=== PATIENT | female | born 1985 | race Caucasian/White ===

== ENCOUNTER → 2017-12-08 15:47 | Outpatient (CLI) | payer MEDICAID, SELFPAY ==
[2017-12-10 11:33] LABS: Hepatitis B Surface Ag Negative (NEGAT); Hepatitis C Ab w Rflx HCV PCR Negative (NEGAT)
[2017-12-10 11:34] LABS: HIV-1/2 Ag & Ab Screen Negative (NEGAT)
[2017-12-10 12:46] LABS: Syphilis Serology (RPR) Negative (Negative)
== END ==
PROVIDERS: PCP Nurse Practitioner Family; Visit Provider Nurse Practitioner Family
DX: Z11.3 Encounter for screening for infections with a predominantly sexual mode of transmission (principal); Z11.59 Encounter for screening for other viral diseases; Z11.4 Encounter for screening for human immunodeficiency virus [HIV]; Z12.4 Encounter for screening for malignant neoplasm of cervix; Z11.51 Encounter for screening for human papillomavirus (HPV)
CPT/HCPCS: 36415; 86803; 87340; 87389; 88142; 86592; 87624

== ENCOUNTER → 2017-12-08 16:12 | Outpatient (REF) | payer MEDICAID, SELFPAY ==
--- NOTE | 2017-12-08 15:30 | PAPFT_PTH ---
PATIENT: Audra Steward LOC: [facility] U#:[id number] AGE/SX: 40/F ROOM: RE12/08/[address]: EVE Jean-Baptiste : 1985 BED: DIS: SPEC #: [id number] RECD: 12/08/17 17:57 STATUS: MARIE GIMENEZ #: [id number] GEORGE: 12/08/17 15:[address]: Marce Victoria DEPT: [facility] Cytology RECD BY: Giovana Richardson ENTERED: 12/08/17 17:57 SP TYPE: PAPFT OTHR DR: EVE Chung Tissues: 1 - CX/ENDOCX FOR PAP SMEARS Procedures: PAP THIN PREP/UVM Screening HPV DNA PROBE Comments: [id number]
== END ==
LOC: LBN 16:12
PROVIDERS: PCP Nurse Practitioner Family; Visit Provider Nurse Practitioner Family
DX: Z12.4 Encounter for screening for malignant neoplasm of cervix (principal); Z11.51 Encounter for screening for human papillomavirus (HPV)
CPT/HCPCS: 88142; 87624

== ENCOUNTER 2018-01-26 14:55 | Outpatient (REF) | payer MEDICAID, SELFPAY ==
--- NOTE | 2018-01-26 13:20 | ENDO_PTH ---
PATIENT: Audra Steward LOC: [facility] U#:[id number] AGE/SX: 32/F ROOM: RE01/26/[address]: Deedee Metz : 1985 BED: DIS: 01/26/2018 SPEC #: [id number] RECD: 01/26/18 18:04 STATUS: MARIE REVikram #: [id number] GEORGE: 01/26/18 13:[address]: Deedee Metz DEPT: Surgical Specimen RECD BY: Giovana Richardson ENTERED: 01/26/18 18:05 SP TYPE: Endo OTHR DR: EVE Chung Tissues: 1 - ENDOCERVICAL BX/CURRETTE 2 - CERVICAL BIOPSY Procedures: GROSS AND MICRO LEVEL 4 Comments: [id number]
== END 2018-01-26 15:15 ==
LOC: LBN 14:55
PROVIDERS: PCP Nurse Practitioner Family; Visit Provider Obstetrics & Gynecology Gynecology
DX: N87.0 Mild cervical dysplasia (principal); R87.610 Atypical squamous cells of undetermined significance on cytologic smear of cervix (ASC-US)
CPT/HCPCS: 88305

== ENCOUNTER 2018-12-30 10:17 | Emergency (ER) | payer MEDICAID, SELFPAY ==
[2018-12-30 10:18] VITALS: BP 122/89; PULSE 60; RESP 16; TEMP 36.8; O2SAT 100
--- NOTE | 2018-12-30 10:27 | ED.GENADUL_ITS ---
Discharge Plan Disposition Patient Disposition: HOME Condition: Stable Discharge Details Chief Complaint: Nk/Back Pain Clinical Impression: Lumbar back pain Primary Care Provider: Kayley Waters ED Provider: Wilder Ramirez Home Meds and New Rx's Prescriptions: New cyclobenzaprine 10 mg tablet 10 mg PO TID PRN (Reason: muscle spasm) Qty: 30 RF: 0 Continued fluocinonide-emollient [Fluocinonide-E] 0.05 % cream 1 applic Topical BID Qty: 1 RF: 5 Nexplanon 68 MG implant 68 mg SQ ONCE Qty: 1 RF: 0 Discharge Instructions Instructions: Back Pain (ED) Additional Instructions: take 1000mg tylenol and 600mg ibuprofen every 6 hours for pain as needed if pain is still present in a week see your primary care provider do not drink alcohol or drive if you take the cyclobenzaprine if you develop severe worsening pain, inability to urinate, fevers return to the emergency department Discharge Data Discharge Date/Time-TO BE ENTERED AT DEPARTURE: 12/30/18 10:36 Medical Decision Making 33 yo female who has a hx of prior low back muscle spasms per pt, comesin with low back pain. She states it started this morning after sneezing. Denies trauma, falls, weakness, fevers, and denies alcohol or drug use .She has 5/5 strength with intact distal senation in the legs and no saddle anesthesia. Pain is paraspinous on both sides of lumbar spine, no midline pain. I suspect muscle spasm vs strain. no findings on exam or hx to suggest sea or cauda equina. Will tx with muscle relaxers and advised f/u with pcp and return precautions given. Given lack of trauma do not feel xray or ct indicated and no infectious symptoms to suggest discitis or osteo. Differential Diagnosis strain, spasm HPI General Mode of arrival: ambulatory . Date/Time Provider Initiated Documentation: 12/30/18 10:17 . Limitations to Documentation: no limitations . Information obtained by: patient . History of Present Illness 33 year old F presents to the emergency department with the chief complaint of low back pain, described as moderate, Quality is described as stabbing and aching, Patient reports radiation to back. No relieving factors improve symptom(s), No exacerbating factors reported . Patient notes no other symptoms.. Patient did receive the following treatments prior to arrival, none Related Data Home Medications Medication Instructions Recorded Confirmed Nexplanon 68 mg SQ ONCE #1 implant 06/15/14 12/30/18 Fluocinonide-E 0.05 % topical cream 1 applic TOPICAL BID #1 tube NS 01/26/18 12/30/18 cyclobenzaprine 10 mg PO TID PRN #30 tab 12/30/18 Previous Rx's Medication Instructions Recorded Fluocinonide-E 0.05 % topical cream 1 applic TOPICAL BID #1 tube NS 01/26/18 cyclobenzaprine 10 mg PO TID PRN #30 tab 12/30/18 Allergies Allergy/AdvReac Type Severity Reaction Status Date / Time Penicillins AdvReac Unknown Nausea Unverified 12/30/18 10:22 General Stated Complaint: Nk/Back Pain CASSIDY: 4 Review of Systems Review of Systems All systems reviewed & are unremarkable except as noted in HPI and below Constitutional Denies chills, Denies fever(s) and Denies weakness Cardiovascular Denies chest pain and Denies dyspnea Respiratory Denies cough and Denies dyspnea Gastrointestinal Denies abdominal pain, Denies nausea and Denies vomiting Musculoskeletal Denies joint swelling Neurologic Denies weakness Endocrine Denies heat intolerance [facility] Medical History (Updated 02/28/18 @ 21:23 by Deedee Metz MD) ASCUS with positive high risk HPV cervical (Acute) 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 02/2017 LEEP: CIN2 clear margins. 11/2017 Pap ASCUS with positive HPV. 01/26/2018. No dysplasia. Repeat Pap in 11/2018. Contraception 2018 2nd Nexplanon inserted. Dermatofibroma of ankle And back Eczema Right lower extremity. 01/17/2017 Rx for topical steroid. LLQ pain (Resolved) Pt had ED visit on 11/04/15 with LLQ pain. Had non-obstructing L kidney stone and L ovarian cyst. Both managed expectantly. Surgical History (Updated 02/04/18 @ 14:34 by [employer] [place]) section x2 Family History Mother Personal history of malignant neoplasm lung CA Father Personal history of malignant neoplasm prostate CA Social History (Updated 02/28/18 @ 21:18 by Deedee Metz MD) Smoking/Tobacco Use Status: Never Alcohol Intake: current Alcohol Intake frequency: holidays/special occasions only Drug use: Never Substance use type: does not use Household members: children and other Details: daughters Eve and Yumiko Number of Children: 2 Seatbelt use: always Do you feel safe at home: Yes Do you feel safe in your relationship?: Yes Female Reproductive History Menstrual control method: implanted History History 2 Para Hx # Term Pregnancies 2 Multiple births Hx # Pregnancies Ectopic pregnancies AB induced Hx Number of Living Children AB spontaneous Exam Const General: no acute distress Orientation: alert HENMT Head: normal to inspection Ears: external ears normal General nose exam: external nose normal Mouth: moist mucous membranes Eyes General: appearance normal, both eyes and all related structures Neck Neck: normal visual inspection Resp Effort & Inspection: normal respiratory effort and able to speak in complete sentences Cardio Rate: regular rate Back/Spine/Pelvis Back: no CVA tenderness Skin General skin exam: no rashes or lesions noted Neuro General: alert and oriented x3 Extrem General: normal to inspection Psych Mental Status: mental status grossly normal Course Vital Signs Temperature 36.8 C 12/30/18 10:18 Pulse 60 12/30/18 10:18 Respiratory Rate 16 12/30/18 10:18 Blood Pressure 122/89 12/30/18 10:18 Pulse Oximetry 100 12/30/18 10:18 Temperature 36.8 C 12/30/18 10:18 Temperature Source Skin 12/30/18 10:18 Pulse 60 12/30/18 10:18 Respiratory Rate 16 12/30/18 10:18 Respiratory Effort Non-Labored 12/30/18 10:21 Blood Pressure 122/89 12/30/18 10:18 Blood Pressure Position Sitting 12/30/18 10:18 Pulse Oximetry 100 12/30/18 10:18 Oxygen Delivery Method Room Air 12/30/18 10:18 Oxygen Flow Rate 0 12/30/18 10:18 Pain Level 8 12/30/18 10:18
== END 2018-12-30 10:36 | disposition home or self-care (01) ==
LOC: ER 10:38
PROVIDERS: Emergency Provider Emergency Medicine; PCP Nurse Practitioner Family
DX: M54.5 Low back pain (principal)
CPT/HCPCS: 99283

== ENCOUNTER 2019-02-01 10:43 | Outpatient (REF) | payer MEDICAID, SELFPAY ==
--- NOTE | 2019-02-01 10:20 | PAPFT_PTH ---
PATIENT: Audra Steward LOC: [facility] U#:[id number] AGE/SX: 33/F ROOM: RE02/01/[address]: EVE Jean-Baptiste : 1985 BED: DIS: 02/01/2019 SPEC #: [id number] RECD: 02/01/19 12:53 STATUS: MARIE REQ #: [id number] GEORGE: 02/01/19 10:[address]: Marce Victoria DEPT: [facility] Cytology RECD BY: Giovana Richardson ENTERED: 02/01/19 12:54 SP TYPE: PAPFT OTHR DR: EVE Chung Tissues: 1 - CX/ENDOCX FOR PAP SMEARS Procedures: PAP THIN PREP/UVM Screening HPV DNA PROBE Comments: [id number]
[2019-02-02 13:55] LABS: Chlamydia Result Negative (Negative); GC Result Negative (Negative); Specimen Description CERVIX
== END 2019-02-01 11:03 ==
LOC: LBN 10:43
PROVIDERS: PCP Nurse Practitioner Family; Visit Provider Nurse Practitioner Family
DX: Z11.3 Encounter for screening for infections with a predominantly sexual mode of transmission (principal); Z12.4 Encounter for screening for malignant neoplasm of cervix; Z11.51 Encounter for screening for human papillomavirus (HPV)
CPT/HCPCS: 87491; 87591; 88142; 87624

== ENCOUNTER 2019-02-19 16:23 | Outpatient (REF) | payer MEDICAID, SELFPAY ==
--- NOTE | 2019-02-19 16:10 | CER_PTH ---
PATIENT: Aurda Steawrd LOC: [facility] U#:[id number] AGE/SX: 33/F ROOM: RE02/19/[address]: Tulio Gutiérrez MD : 1985 BED: DIS: 02/19/2019 SPEC #: [id number] RECD: 02/22/19 11:55 STATUS: MARIE REVikram #: [id number] GEORGE: 02/19/19 16:[address]: Tulio Gutiérrez DEPT: Surgical Specimen RECD BY: Aileen Forrest ENTERED: 02/22/19 11:57 SP TYPE: LIDIA [place] DR: EVE Chung Tissues: 1 - CERVICAL BIOPSY 2 - ENDOCERVICAL BX/CURRETTE Procedures: GROSS AND MICRO LEVEL 4 Comments: [id number]
== END 2019-02-19 16:43 ==
LOC: LBN 16:23
PROVIDERS: PCP Nurse Practitioner Family; Visit Provider Obstetrics & Gynecology
DX: N85.01 Benign endometrial hyperplasia (principal); N88.8 Other specified noninflammatory disorders of cervix uteri; Z87.410 Personal history of cervical dysplasia
CPT/HCPCS: 88305

== ENCOUNTER 2019-05-26 14:25 | Outpatient (CLI) | payer MEDICAID, SELFPAY ==
--- NOTE | 2019-05-26 14:11 | DI.RAD_ITS ---
EXAM: XR WRIST LT COMPLETE CLINICAL HISTORY: ?metarcarpal bossing to dorsum left hand, M25.532 PAIN LT WRIST. TECHNIQUE: 2D digital imaging was performed. COMPARISON: No exams were available for comparison FINDINGS: BONES: No acute fracture is present. No bony destructive lesion is seen. JOINTS: The carpal bones are normally aligned. SOFT TISSUE: Normal. IMPRESSION: Unremarkable radiographs of the left wrist.
== END 2019-05-26 14:45 ==
PROVIDERS: PCP Nurse Practitioner Family; Visit Provider Nurse Practitioner Family
DX: M25.532 Pain in left wrist (principal)
CPT/HCPCS: 73110

== ENCOUNTER 2020-05-18 13:01 | Emergency (ER) | payer MEDICAID, SELFPAY ==
[2020-05-18 13:16] VITALS: BP 119/70; PULSE 62; RESP 16; TEMP 36.5; O2SAT 100
--- NOTE | 2020-05-18 14:32 | ED.GENADUL_ITS ---
Discharge Plan Disposition Patient Disposition: HOME Condition: Stable Discharge Details Clinical Impression: Lumbar back pain with radiculopathy affecting left lower extremity Primary Care Provider: None,None ED Provider: Cheng Calderon Home Meds and New Rx's Prescriptions: Continued montelukast 10 mg tablet 10 mg PO DAILY RF: 0 albuterol sulfate 90 mcg/actuation HFA aerosol inhaler 1 inh inhalation ONCE PRNRF: 0 Nexplanon 68 MG implant 68 mg SQ ONCE Qty: 1 RF: 0 Discharge Instructions Instructions: Lumbar Radiculopathy (ED), Lower Back Exercises (ED) Additional Instructions: Brzc-hgl-[id number] Tylenol and/or Motrin as directed for discomfort. Gentle stretching as tolerated. Cool and/or warm compresses every 2 hours for 20 minutes. Please watch for new or worsening symptoms and return to the ER for any concerns. I am giving you a referral to physical therapy and a work note for tomorrow. I also recommend reaching out your primary care provider for prompt outpatient reevaluation. Stand Alone Forms: Physical Therapy Referral, Work Release Discharge Data Discharge Date/Time-TO BE ENTERED AT DEPARTURE: 05/18/20 15:10 Medical Decision Making 35-year-old female reports that she was getting out of bed quickly this morning and injured her left back. Has had back injuries in the past but given her employment and insurance never followed through with evaluation. Clinically she appears well, nontoxic. Neuro, vascular, tendon intact. This appears to be left lumbar discomfort worse over the SI region with radiculopathy down the leg. Given the lack of obvious trauma I believe that x-ray imaging likely little value from an emergency room standpoint. Patient reports that in the past she has come to the ER and received a shot which is helped greatly. We will give IM Toradol, referral to physical therapy, and we discussed the importance of outpatient follow-up. Patient is agreeable with this plan and has no additional questions or concerns. Patient is afebrile, there is no midline point tenderness, and she is neurologically intact. Medical Records Medical records reviewed: Yes I reviewed the patient's medical records. HPI General Mode of arrival: ambulatory . Date/Time Provider Initiated Documentation: 05/18/20 13:27 . Limitations to Documentation: no limitations . Information obtained by: patient . HPI Narrative: This is a 35-year-old female who denies significant past medical history. She states that she jumped out of bed this morning quickly and felt pain in her left lower back that radiates down her left buttocks into her leg but not past her knee. She denies any true numbness, tingling, weakness but does state that the leg feels heavy. She has had back issues in the past that have felt similarly but now she has a different job and different insurance and can follow through with her evaluation and care. She denies fever, history of drug use, chest pain, shortness of breath abdominal pain, nausea or vomiting, bowel or bladder incontinence or retention, dysuria, vaginal bleeding or discharge. She took zlch-uhc-kpucfev anti- inflammatory medication today with little relief. Related Data Home Medications Medication Instructions Recorded Confirmed Nexplanon 68 mg SQ ONCE #1 implant 06/15/14 05/18/20 albuterol sulfate 90 mcg/actuation 1 inh INHALATION ONCE PRN 04/04/20 05/18/20 aerosol inhaler montelukast 10 mg tablet 10 mg PO DAILY 04/04/20 05/18/20 Allergies Allergy/AdvReac Type Severity Reaction Status Date / Time Penicillins AdvReac Unknown Nausea Unverified 05/18/20 13:20 Environmental Allergy Unknown Uncoded 05/18/20 13:20 General Stated Complaint: Nk/Back Pain CASSIDY: 3 Review of Systems Constitutional Constitutional: Denies fever(s) and Denies weakness Cardiovascular Cardiovascular: Denies chest pain and Denies dyspnea Respiratory Respiratory: Denies dyspnea Gastrointestinal Gastrointestinal: Denies abdominal pain, Denies nausea and Denies vomiting Genitourinary Genitourinary: Denies dysuria Musculoskeletal Musculoskeletal: Reports back pain, Denies numbness, Reports stiffness and Denies tingling Integumentary/Breasts Skin/Breast: Denies erythema and Denies rash Neurologic Neurologic: Denies numbness, Denies tingling and Denies weakness [facility] Medical History Atopic dermatitis Nexplanon in place Surgical History History of section (10/25/04) and 06/29/08 S/P LEEP of cervix (03/10/17) Family History Mother Lung cancer Father Prostate cancer Social History Smoking/Tobacco Use Status: Never Smoking risk assessment performed?: Yes Alcohol Intake: current Alcohol Intake frequency: holidays/special occasions only Drug use: Never Substance use type: does not use Counseling given: No Household members: children and other Details: daughters Ashley Number of Children: 2 Seatbelt use: always Do you feel safe at home: Yes Do you feel safe in your relationship?: Yes Female Reproductive History Menstrual control method: implanted History History 2 Para Hx # Term Pregnancies 2 Multiple births Hx # Pregnancies Ectopic pregnancies AB induced Hx Number of Living Children AB spontaneous Exam Const General: cooperative, healthy appearing, comfortable and no acute distress Orientation: alert and awake HENMT Head: normal to inspection, normocephalic and atraumatic Eyes General: appearance normal, both eyes and all related structures Conjunctivae: conjunctivae normal Sclera: sclerae normal Neck Neck: normal visual inspection, full ROM, no meningeal signs, trachea midline and supple Resp Effort & Inspection: normal respiratory effort and able to speak in complete sentences Auscultation: clear to auscultation bilaterally Cardio Rate: regular rate Rhythm: regular rhythm GI Palpation: soft and nontender Back/Spine/Pelvis Back: no CVA tenderness and back tenderness (Diffuse left lumbar, worse over the SI joint) Thoracic/Lumbar Spine: straight leg raise positive (Right leg 10 degrees, negative left) Skin General skin exam: no rashes or lesions noted Neuro General: patient alert, patient awake, moves all extremities and no focal motor deficits Cognition: normal cognition Speech: speech normal Gait: antalgic Motor: muscle tone normal throughout and strength 5/5 throughout Sensory Exam: no sensory deficits noted Extrem General: normal to inspection, full ROM and capillary refill normal Psych Appearance: grossly normal Mental Status: mental status grossly normal Course Vital Signs Vital signs: Vital Signs Temperature 36.5 C 05/18/20 13:16 Pulse 62 05/18/20 13:16 Respiratory Rate 16 05/18/20 13:16 Blood Pressure 119/70 05/18/20 13:16 Pulse Oximetry 100 05/18/20 13:16 Temperature 36.5 C 05/18/20 13:16 Temperature Source Temporal Artery Scan 05/18/20 13:16 Pulse 62 05/18/20 13:16 Respiratory Rate 16 05/18/20 13:16 Respiratory Effort Non-Labored 05/18/20 13:19 Blood Pressure 119/70 05/18/20 13:16 Blood Pressure Position Sitting 05/18/20 13:16 Pulse Oximetry 100 05/18/20 13:16 Oxygen Delivery Method Room Air 05/18/20 13:16 Oxygen Flow Rate 0 05/18/20 13:16 Pain Level 7 05/18/20 13:21
[2020-05-18] MEDS: Ketorolac 60 MG/2 ML VIAL IM (14:43)
[2020-05-18 14:51] VITALS: BP 121/65; PULSE 55; RESP 20; TEMP 36.6; O2SAT 98
== END 2020-05-18 15:10 | disposition home or self-care (01) ==
PROVIDERS: Emergency Provider Physician Assistant
DX: M54.16 Radiculopathy, lumbar region (principal)
CPT/HCPCS: 96372; 99284; 99283; J1885

== ENCOUNTER 2021-03-16 15:44 | Emergency (ER) | payer MEDICAID, SELFPAY ==
[2021-03-16 15:51] VITALS: BP 154/88; PULSE 103; RESP 16; TEMP 38; O2SAT 98
--- NOTE | 2021-03-16 16:22 | ED.GENADUL_ITS ---
Discharge Plan Disposition Patient Disposition: HOME Condition: Stable Discharge Details Clinical Impression: Rash, skin, Acute viral syndrome, Nausea & vomiting Primary Care Provider: Chitra Arredondo ED Provider: Giovana Barber Home Meds and New Rx's Prescriptions: New ondansetron HCl [Zofran] 4 mg tablet 4 mg PO Q8H PRNQty: 10 RF: 0 cephalexin 500 mg capsule 500 mg PO Q6H 7 Days Qty: 28 RF: 0 Discharge Instructions Instructions: Acute Nausea and Vomiting (ED), Acute Rash (ED), Viral Syndrome (ED) Additional Instructions: Unclear as to whether or not the rash overlying your immunizations by a local allergic reaction or a skin infection, Vanna condition would be to take 25 to 50 mg of Benadryl and apply hydrocortisone on cool compresses, august 24 hours and if you have persistent bright red rash, I recommend starting her antibiotics at that time Zofran as needed for nausea and vomiting I have written you prescription for Keflex, you are allergic to penicillin, there is some cross sensitivity between these medications, however your reaction to penicillin is nausea and this medication is very likely to be safe for you to take Should you have a fever longer than 5 days, my recommendation is to be closely reevaluated Recommendation reevaluation on Friday by PCP anyway Talk to your doctor about risk and benefit of receiving your expectant maternal vaccine, it is likely quite safe for you to receive this vaccine with monitoring I recommend you isolate until your test returned, likely 24 to 36 hours hours Please return earlier should you have new or worsening complaints Discharge Data Discharge Date/Time-TO BE ENTERED AT DEPARTURE: 03/16/21 16:41 Medical Decision Making Patient appears well, there is no evidence of meningitis, she is alert, oriented, not actively vomiting Given prescription for Zofran Covid send out pending Will isolate until test returns Ibuprofen and Tylenol for fever control Reassessment in 24 to 48 hours with persistent symptoms Medical Records Medical records reviewed: Yes I reviewed the patient's medical records. Lab Data Lab results reviewed: Yes I reviewed the patient's lab results. HPI General Mode of arrival: ambulatory . Date/Time Provider Initiated Documentation: 03/16/21 16:02 . Limitations to Documentation: no limitations . Information obtained by: patient . HPI Narrative: This 35-year-old female presents with chills, nausea, vomiting, and skin rash. She states that she received her COVID-19 vaccine on the and felt fine but did develop a rash the following day. She states has been persistent but not necessarily worsening since onset. She is concerned because she developed a fever today, 101. 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 She denies any pain or shortness of breath. She denies any dizziness or weakness. She denies dysuria or frequency. She states that she is actively trying to become , but has not missed her menses. She denies any additional rashes. Related Data Home Medications Medication Instructions Recorded Confirmed cephalexin 500 mg PO Q6H 7 Days #28 cap 03/16/21 ondansetron HCl [Zofran] 4 mg PO Q8H PRN #10 tab 03/16/21 Previous Rx's Medication Instructions Recorded cephalexin 500 mg PO Q6H 7 Days #28 cap 03/16/21 ondansetron HCl [Zofran] 4 mg PO Q8H PRN #10 tab 03/16/21 Allergies Allergy/AdvReac Type Severity Reaction Status Date / Time Penicillins AdvReac Unknown Nausea Unverified 03/16/21 15:55 Environmental Allergy Unknown Uncoded 03/16/21 15:55 General Stated Complaint: GenMedical CASSIDY: 3 Review of Systems All systems reviewed & are unremarkable except as noted in HPI and below PFSH Active Problem List (Updated 03/16/21 @ 16:31 by ZOYA Gonzalez) Rash, skin (Acute) Acute viral syndrome (Acute) Nausea & vomiting (Acute) TMJ (temporomandibular joint disorder) (Acute) Shortness of breath (Acute) Tonsil stone (Acute) Tonsillar hypertrophy (Acute) Nasal septal spur (Acute) Deviated nasal septum (Acute) Post-nasal drip (Acute) Chronic rhinitis (Acute) Allergic rhinitis due to pollen (Acute) Ganglion cyst of dorsum of left wrist (Acute) Medical History Nexplanon in place Surgical History History of section (10/25/04) and 06/29/08 S/P LEEP of cervix (03/10/17) Family History Mother Lung cancer Father Prostate cancer Social History Smoking/Tobacco Use Status: Never Smoking risk assessment performed?: Yes Alcohol Intake: current Alcohol Intake frequency: holidays/special occasions only Drug use: Never Substance use type: does not use Counseling given: No Household members: children and other Details: daughters Eve and Yumiko Number of Children: 2 Seatbelt use: always Do you feel safe at home: Yes Do you feel safe in your relationship?: Yes Female Reproductive History Menstrual control method: implanted History History 2 Para Hx # Term Pregnancies 2 Multiple births Hx # Pregnancies Ectopic pregnancies AB induced Hx Number of Living Children AB spontaneous Exam Const General: cooperative, comfortable and no acute distress HENMT Head: normal to inspection Mouth: oral mucosae normal Eyes Pupils: PERRL Neck Other: No meningismus Resp Effort & Inspection: normal respiratory effort Cardio Rate: regular rate Rhythm: regular rhythm GI Other: No abdominal tenderness Skin Other: Approximately 2 inch x 2 inch well-circumscribed lesion left deltoid region. Neuro General: patient alert and patient oriented x3 Course Vital Signs Vital signs: Vital Signs Temperature 38.0 C H 03/16/21 15:51 Pulse 103 H 03/16/21 15:51 Respiratory Rate 16 03/16/21 15:51 Blood Pressure 154/88 H 03/16/21 15:51 Pulse Oximetry 98 03/16/21 15:51 Temperature 38.0 C H 03/16/21 15:51 Temperature Source Tympanic 03/16/21 15:51 Pulse 103 H 03/16/21 15:51 Respiratory Rate 16 03/16/21 15:51 Respiratory Effort 03/16/21 15:56 Blood Pressure 154/88 H 03/16/21 15:51 Blood Pressure Position Sitting 03/16/21 15:51 Pulse Oximetry 98 03/16/21 15:51 Oxygen Delivery Method Room Air 03/16/21 15:51 Oxygen Flow Rate 0 03/16/21 15:51 Pain Level 10 03/16/21 15:51
[2021-03-16 16:33] VITALS: TEMP 38
[2021-03-16] MEDS: Ondansetron O.D.T. 4 MG TABEF PO (16:33)
[2021-03-16] MEDS: Acetaminophen 325 MG TAB 650 MG PO (16:33)
--- NOTE | 2021-03-18 11:54 | NUR.NOTE ---
spoke to pt-told no result yet form covid test. pt called wanting to know results.Nursing Note:
[2021-03-18 16:25] LABS: COVID-19 RT-PCR UVMMC Result Positive (Negative)
--- NOTE | 2021-03-18 17:58 | W.ED.FU ---
Follow Up Plan: Patient made aware regarding positive COVID-19 swab and need for isolation
--- NOTE | 2021-03-18 18:08 | ED.GENADUL_ITS ---
Discharge Plan Disposition Patient Disposition: HOME Condition: Stable Discharge Details Clinical Impression: Rash, skin, Acute viral syndrome, Nausea & vomiting Primary Care Provider: Chitra Arredondo ED Provider: Giovana Barber Home Meds and New Rx's Prescriptions: New ondansetron HCl [Zofran] 4 mg tablet 4 mg PO Q8H PRNQty: 10 RF: 0 cephalexin 500 mg capsule 500 mg PO Q6H 7 Days Qty: 28 RF: 0 Discharge Instructions Instructions: Acute Nausea and Vomiting (ED), Acute Rash (ED), Viral Syndrome (ED) Additional Instructions: Unclear as to whether or not the rash overlying your immunizations by a local allergic reaction or a skin infection, Vanna condition would be to take 25 to 50 mg of Benadryl and apply hydrocortisone on cool compresses, august 24 hours and if you have persistent bright red rash, I recommend starting her antibiotics at that time Zofran as needed for nausea and vomiting I have written you prescription for Keflex, you are allergic to penicillin, there is some cross sensitivity between these medications, however your reaction to penicillin is nausea and this medication is very likely to be safe for you to take Should you have a fever longer than 5 days, my recommendation is to be closely reevaluated Recommendation reevaluation on Friday by PCP anyway Talk to your doctor about risk and benefit of receiving your expectant maternal vaccine, it is likely quite safe for you to receive this vaccine with monitoring I recommend you isolate until your test returned, likely 24 to 36 hours hours Please return earlier should you have new or worsening complaints Discharge Data Discharge Date/Time-TO BE ENTERED AT DEPARTURE: 03/16/21 16:41 Medical Decision Making Patient appears well, she is probably having an allergic reaction here her Covid vaccine, I have lower suspicion of infectious She is also having findings of consistent with COVID-19 and she is not fully vaccinated as she only had a single there She is instructed to isolate pending her Covid swab returned She is otherwise stable She is given low threshold to return with new or worsening complaints She will take ibuprofen and Tylenol for fever control and return earlier with new or worsening complaints Medical Records Medical records reviewed: Yes I reviewed the patient's medical records. Lab Data Lab results reviewed: Yes I reviewed the patient's lab results. HPI General Mode of arrival: ambulatory . Date/Time Provider Initiated Documentation: 03/16/21 16:02 . Limitations to Documentation: no limitations . Information obtained by: patient . HPI Narrative: This 35-year-old female presents for report of body aches, chills, nausea and fever since Friday. Left arm redness and pain over the injection site. She states she received her first Covid vaccine on 1116 and have a headache at that time but otherwise felt well. 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 She denies any stiff neck or headache. T-max of 101 at home. Has been taking ibuprofen and Tylenol. Denies chance of . Denies abdominal pain, vomiting, or diarrhea. Denies any urinary symptoms. Related Data Home Medications Medication Instructions Recorded Confirmed cephalexin 500 mg PO Q6H 7 Days #28 cap 03/16/21 ondansetron HCl [Zofran] 4 mg PO Q8H PRN #10 tab 03/16/21 Previous Rx's Medication Instructions Recorded cephalexin 500 mg PO Q6H 7 Days #28 cap 03/16/21 ondansetron HCl [Zofran] 4 mg PO Q8H PRN #10 tab 03/16/21 Allergies Allergy/AdvReac Type Severity Reaction Status Date / Time Penicillins AdvReac Unknown Nausea Unverified 03/16/21 15:55 Environmental Allergy Unknown Uncoded 03/16/21 15:55 General Stated Complaint: GenMedical CASSIDY: 3 Review of Systems All systems reviewed & are unremarkable except as noted in HPI and below PFSH Active Problem List (Updated 03/16/21 @ 16:31 by ZOYA Gonzalez) Rash, skin (Acute) Acute viral syndrome (Acute) Nausea & vomiting (Acute) TMJ (temporomandibular joint disorder) (Acute) Shortness of breath (Acute) Tonsil stone (Acute) Tonsillar hypertrophy (Acute) Nasal septal spur (Acute) Deviated nasal septum (Acute) Post-nasal drip (Acute) Chronic rhinitis (Acute) Allergic rhinitis due to pollen (Acute) Ganglion cyst of dorsum of left wrist (Acute) Medical History Nexplanon in place Surgical History History of section (10/25/04) and 06/29/08 S/P LEEP of cervix (03/10/17) Family History Mother Lung cancer Father Prostate cancer Social History Smoking/Tobacco Use Status: Never Smoking risk assessment performed?: Yes Alcohol Intake: current Alcohol Intake frequency: holidays/special occasions only Drug use: Never Substance use type: does not use Counseling given: No Household members: children and other Details: daughters Eve and Yumiko Number of Children: 2 Seatbelt use: always Do you feel safe at home: Yes Do you feel safe in your relationship?: Yes Female Reproductive History Menstrual control method: implanted History History 2 Para Hx # Term Pregnancies 2 Multiple births Hx # Pregnancies Ectopic pregnancies AB induced Hx Number of Living Children AB spontaneous Exam Const General: cooperative and comfortable Orientation: alert and oriented x3 HENMT Throat: posterior oropharynx normal Eyes Conjunctivae: conjunctivae normal Neck Other: No meningismus Resp Effort & Inspection: normal respiratory effort Auscultation: clear to auscultation bilaterally Cardio Rate: regular rate Rhythm: regular rhythm GI Other: Nontender abdominal exam Skin Other: 2 inch x 2 inch area of erythema to left deltoid region, mild tenderness, no lymphangitis, no crepitus, no fluctuance Neuro General: patient alert and patient oriented x3 Extrem Other: Neurovascularly intact Course Vital Signs Vital signs: Vital Signs Temperature 38.0 C H 03/16/21 15:51 Pulse 103 H 03/16/21 15:51 Respiratory Rate 16 03/16/21 15:51 Blood Pressure 154/88 H 03/16/21 15:51 Pulse Oximetry 98 03/16/21 15:51 Temperature 38.0 C H 03/16/21 16:33 Temperature Source Tympanic 03/16/21 15:51 Pulse 103 H 03/16/21 15:51 Respiratory Rate 16 03/16/21 15:51 Respiratory Effort 03/16/21 15:56 Blood Pressure 154/88 H 03/16/21 15:51 Blood Pressure Position Sitting 03/16/21 15:51 Pulse Oximetry 98 03/16/21 15:51 Oxygen Delivery Method Room Air 03/16/21 15:51 Oxygen Flow Rate 0 03/16/21 15:51 Pain Level 10 03/16/21 16:33 Lab/Test Results Lab/Test Results: Laboratory Tests Range/Units 03/16/21 16:40 SARS-CoV-2 (PCR) (Negative) Positive A* Nasopharyn COVID-19 PCR Not Applicable Ref Test Perform Site [facility]
== END 2021-03-16 16:41 | disposition home or self-care (01) ==
PROVIDERS: Emergency Provider Physician Assistant; PCP Physician Assistant
DX: R21 Rash and other nonspecific skin eruption (principal); B34.9 Viral infection, unspecified; R11.2 Nausea with vomiting, unspecified; Z20.822 Contact with and (suspected) exposure to COVID-19
CPT/HCPCS: 99283; U0003

== ENCOUNTER 2021-06-11 02:50 | Outpatient (CLI) | payer MEDICAID, SELFPAY ==
[2021-06-11 13:52] LABS: TSH (W/Ref FT4) 4.02 uIU/mL (0.36-3.74)
[2021-06-11 14:15] LABS: FREE T4 0.82 ng/dL (0.76-1.46)
[2021-06-11 16:39] LABS: Estradiol 98 pg/mL (See Note)
== END 2021-06-11 02:51 | disposition home or self-care (01) ==
LOC: LBO 02:50
PROVIDERS: Obstetrics & Gynecology; PCP Nurse Practitioner Family; Visit Provider Nurse Practitioner Women's Health
DX: N92.0 Excessive and frequent menstruation with regular cycle (principal)
CPT/HCPCS: 36415; 82670; 84439; 84443

== ENCOUNTER 2021-06-29 03:00 | Outpatient (CLI) | payer MEDICAID, SELFPAY ==
--- NOTE | 2021-06-29 06:45 | DI.RAD_ITS ---
Exam(s) RF HYSTEROSALPINGOGRAM EXAM: RF HYSTEROSALPINGOGRAM CLINICAL HISTORY: infertility,n97.9 TECHNIQUE: 2D and realtime digital imaging was performed. CONTRAST MATERIAL: Water soluble contrast was introduced into the uterine cavity via a balloon tip e ndo catheter which was placed by the provider. COMPARISON: No exams were available for comparison FINDINGS: The uterus fills normally with no evidence of contour abnormality, filling defect, septum, stricture, mass, or bicornuate configuration. The bilateral uterine tubes are normal and patent with normal rapid spillage of contrast into the per itoneum. IMPRESSION: 1. Patent bilateral fallopian tubes. 2. No significant filling defects nor external compression evident at the level of the opacified endo metrial cavity. RADIATION DOSE DELIVERED: Kar= mGy
[2021-06-29] MEDS: Omnipaque 350 MG/ML 50 ML BTL IJ (10:51)
--- NOTE | 2021-06-29 10:53 | OPPNE_ITS ---
Date of service: 06/29/21 Time of Service: 10:30 Procedure Note Date of procedure: 06/29/21 Procedure: Hysterosalpingogram Surgeon/Proceduralist/Physician: Ysabel Franco Procedure Diagnosis: Infertility Procedure Indications: Pt and partner have been trying to conceive for over a year. Regular cycles. Normal bloodwork. Ultrasound pending. Partner's eval pending establishment w ith a PCP. Procedure Description: The patient arrived to diagnostic imaging for HSG for infertility. She had a negative test. The procedure was explained and consent was signed. She was positioned in the dorsal lithotomy position on the table. A time out was performed. The speculum was placed in the vagina to expose the cervix. The cervix was clensed with betadyne and the anterior lip was grasped with a single tooth tenaculum.. The catheter was inserted through the cervix into the uterine cavity. The balloon was inflated. The tenaculum was then removed. When the radiologist was present the patient was repositioned. The contrast was then injected while the radiologist performed fluroscopy. The balloon was then deflated and the catheter and speculum were removed. The uterine cavity appeared normal and both tubes appeared patent with positive spill noted bilaterally.
== END 2021-06-29 03:20 ==
LOC: DI 03:00
PROVIDERS: PCP Nurse Practitioner Family; Visit Provider Obstetrics & Gynecology
DX: N97.8 Female infertility of other origin (principal)
CPT/HCPCS: 58340; 74740; Q9967

== ENCOUNTER 2021-07-03 16:53 | Outpatient (REF) | payer MEDICAID, SELFPAY ==
--- NOTE | 2021-07-03 15:40 | PAPFT_PTH ---
PATIENT: Audra Steward LOC: [facility] U#:[id number] AGE/SX: 36/F ROOM: RE07/03/[address]: Rani Ramirez NP : 1985 BED: DIS: 07/03/2021 SPEC #: [id number] RECD: 07/03/21 18:10 STATUS: MARIE REVikram #: [id number] GEORGE: 07/03/21 15:[address]: Rani Ramirez NP DEPT: [facility] Cytology RECD BY: Giovana Richardson ENTERED: 07/03/21 18:10 SP TYPE: PAPFT OTHR DR: Kayley Waters, HYDRAULIC HAMMER OPERATOR Tissues: 1 - CX/ENDOCX FOR PAP SMEARS Procedures: PAP THIN PREP/UVM Screening HPV DNA PROBE Comments: [id number] (CHLAMYDIA/GC)
[2021-07-04 14:21] LABS: Chlamydia Result Negative (Negative); GC Result Negative (Negative)
== END 2021-07-03 16:54 | disposition home or self-care (01) ==
LOC: LBN 16:53
PROVIDERS: PCP Nurse Practitioner Family; Visit Provider Nurse Practitioner Women's Health
DX: Z12.4 Encounter for screening for malignant neoplasm of cervix (principal); Z11.51 Encounter for screening for human papillomavirus (HPV); Z11.3 Encounter for screening for infections with a predominantly sexual mode of transmission
CPT/HCPCS: 87491; 87591; 88142; 87624

== ENCOUNTER 2021-07-05 02:31 | Outpatient (CLI) | payer MEDICAID, SELFPAY ==
--- NOTE | 2021-07-05 07:45 | DI.US_ITS ---
Exam(s) US PELVIS TRANSVAGINAL EXAM: US PELVIS TRANSVAGINAL CLINICAL HISTORY: heavy periods,N92.0 TECHNIQUE: Ultrasound of the pelvis was performed both transabdominal and transvaginal. COMPARISON: Compared to prior ultrasound examination performed January 2017. FINDINGS: UTERUS: Uterus is nongravid and anteverted. Measures 6.7 cm length x 3.5 cm AP x 0.7 cm wide. There is a finding in the anterior myometrium of the lower uterine segment which is probably a fibroi d measuring 1.2 x 1.2 x 1.7 cm. Endometrial thickness measures 8.3 mm. There is no fluid in the endometrial canal. CERVIX: There are no obvious nabothian cysts. RIGHT OVARY: Measures 0.8 x 3.8 x 2.8 cm Contains a cyst measuring 1.5 x 2.2 x 1.6 cm LEFT OVARY: Measures 2.5 x 1.1 x 2.8 cm Contains a small 3 x 4 x 6 millimeter finding which is hyperechoic compared to the surrounding ovaria n tissue. This of questionable significance. CUL-DE-SAC: No free fluid evident. IMPRESSION: 1. Small anterior myometrial fibroid in the lower uterine segment. Endometrial stripe thickness 8.3 millimeters. No fluid in the endometrial canal. 2. 1.6 cm cyst in the right ovary and 0.6 cm hyperechoic finding in the left ovary questionable signi ficance. 3. No free fluid evident in the adnexal regions and cul-de-sac. Recommend follow-up transvaginal pelvic ultrasound examination 3 months. DATA REPOSITORY:
== END 2021-07-05 02:51 ==
PROVIDERS: PCP Nurse Practitioner Family; Visit Provider Obstetrics & Gynecology
DX: N92.0 Excessive and frequent menstruation with regular cycle (principal); D25.9 Leiomyoma of uterus, unspecified; N83.201 Unspecified ovarian cyst, right side
CPT/HCPCS: 76830; 76856

== ENCOUNTER 2021-08-20 16:26 | Outpatient (CLI) | payer MEDICAID, SELFPAY ==
[2021-08-20 16:28] LABS: FREE T4 0.87 ng/dL (0.76-1.46); TSH 6.35 uIU/mL (0.36-3.74)
[2021-08-20 16:33] LABS: TSH (W/Ref FT4) 6.07 uIU/mL (0.36-3.74)
[2021-08-20 22:11] LABS: Thyroglobulin Antibody 24 U/mL (<=60); Thyroperoxidase Antibody >1300 U/mL (<=60)
[2021-08-20 22:16] LABS: FSH 0.7 mIU/mL (See Note)
== END 2021-08-20 16:27 | disposition home or self-care (01) ==
LOC: LBO 16:27
PROVIDERS: Nurse Practitioner Family; Obstetrics & Gynecology; PCP Nurse Practitioner Family; Visit Provider Nurse Practitioner Family
DX: N92.0 Excessive and frequent menstruation with regular cycle (principal); R79.89 Other specified abnormal findings of blood chemistry
CPT/HCPCS: 36415; 86376; 83001; 84439; 84443

== ENCOUNTER 2021-10-04 03:50 | Outpatient (CLI) | payer MEDICAID, SELFPAY ==
[2021-10-04 15:15] LABS: Kit/Specimen SENT
[2021-10-04 15:33] LABS: Abs Immature Grans 0.04 10^3/uL (0.0-0.06); Absolute Basophil Count 0.06 10^3/uL (0.0-0.2); Absolute Eosinophil Count 0.37 10^3/uL (0.0-0.7); Absolute Lymphocyte Count 2.63 10^3/uL (1.2-3.4); Absolute Monocyte Count 0.61 10^3/uL (0.1-0.8); Basophils % 0.6; Eosinophils % 3.7; HCT 35.4 % (36.0-46.0); HGB 12.1 g/dL (11.2-15.7); Immature Grans % 0.4; Lymphocytes % 26.5; MCH 30.4 pg (27.0-33.0); MCHC 34.2 % (32.0-36.0); MCV 89 fL (80-95); MPV 8.4 fL (8.0-11.0); Monocytes % 6.2; Neutrophils % 62.6; Platelet Count 249 10^3/uL (130-400); RBC 3.98 10^6/uL (3.93-5.22); RDW-SD 39.1 fL; WBC 9.91 10^3/uL (4.4-10.8)
[2021-10-04 16:24] LABS: Glucose,1 Hr (Glucola) 96 mg/dL (80-140)
[2021-10-04 16:42] LABS: FREE T4 0.99 ng/dL (0.76-1.46); TSH 2.77 uIU/mL (0.36-3.74)
[2021-10-05 08:56] LABS: Hepatitis B Surface Ag Negative (Negative)
[2021-10-05 09:32] LABS: Thyroperoxidase Antibody >1300 U/mL (<=60)
[2021-10-05 09:43] LABS: Hepatitis C Ab w Rflx HCV PCR Negative (Negative)
[2021-10-05 09:49] LABS: HIV-1/2 Ag & Ab Screen Negative (Negative)
[2021-10-05 11:40] LABS: Rubella IgG Ab (UVM) Positive (See Note); Varicella IgG Antibody Positive (See Note)
[2021-10-05 22:06] LABS: Syphilis IgG w/Reflex Nonreactive (Nonreactive)
== END 2021-10-04 03:51 | disposition home or self-care (01) ==
LOC: LBO 03:50
PROVIDERS: Advanced Practice Midwife; PCP Nurse Practitioner Family; Visit Provider Advanced Practice Midwife
DX: Z34.91 Encounter for supervision of normal pregnancy, unspecified, first trimester
CPT/HCPCS: 36415; 82950; 86787; 86803; 86850; 86900; 86901; 87340; 87389; 84439; 84443; 85025; 86376; 86762; 86780

== ENCOUNTER 2021-10-04 17:33 | Outpatient (REF) | payer MEDICAID, SELFPAY ==
[2021-10-04 18:31] LABS: *AMPHETAMINES SCREEN URINE Negative (Negative); *BARBITURATES SCREEN URINE Negative (Negative); *BENZODIAZEPINES SCREEN URINE Negative (Negative); Cannabinoids THC Positive (Negative); Cocaine Screen,Urine Negative (Negative); METHADONE URINE SCREEN Negative (Negative); OPIATES URINE SCREEN Negative (Negative)
[2021-10-04 18:39] LABS: Tricyclic Antidepressants Negative (Negative)
[2021-10-08 14:37] LABS: Chlamydia Result Negative (Negative); GC Result Negative (Negative)
[2021-10-11 14:57] LABS: Buprenorphine Negative ng/mL (Cutoff: 5.0); Norbuprenorphine Negative ng/mL (Cutoff: 2.5)
== END 2021-10-04 17:34 | disposition home or self-care (01) ==
LOC: LBN 17:33
PROVIDERS: PCP Nurse Practitioner Family; Visit Provider Advanced Practice Midwife
DX: Z34.91 Encounter for supervision of normal pregnancy, unspecified, first trimester (principal); N76.0 Acute vaginitis; Z3A.11 11 weeks gestation of pregnancy
CPT/HCPCS: 80307; 87491; 87591; 87086; 87480; 87510; 87660

== ENCOUNTER 2021-11-07 01:37 | Outpatient (CLI) | payer MEDICAID, SELFPAY ==
--- OUTSIDE RECORDS SUMMARY | 2021-11-07 01:39 | XMS_ITS | Encounter Summary ---
:1985 Author Organization [facility] Address [address] [place] [address] Care Team Providers Name Role Phone Unknown, Provider Primary Care Provider Encounter Details Date Type Department Care Team Description 01/26/[address] [facility]- Harley Martinez MD [phone] [facility] [place], [place] [id number] (Wo rk) Social History Tobacco Use Types Packs/Day Years Used Date Never Assessed Sex Assigned at Date Recorded Not on file documented as of this encounter Plan of Treatment Not on filedocumented as of this encounter Procedures Procedure Name Priority Date/Time Associated Diagnosis Comme [facility] SURGICAL PATHOLOGY Routine 01/26/2018 8:59 EDT Re sults for this procedure are i n the results section. documented in this encounter Results SURGICAL PATHOLOGY (01/26/2018 8:59 EDT) Pathology Report: SURGICAL PATHOLOGY REPORT [facility] Reports generated via electronic interface conta in original data; [facility] however they are lacking the format of the original re port. SERVICES Caution should be taken when reading/interpreting unfo rmatted reports. Name: ? LO DEXTER ? Accession #: ? [id number] ? : ? 1985 (Age: 3 2) ??F ? Collect Date: ? 01/26/2018 ? Location: ? [facility] ? Receive Date: ? 01/28/20 18 ? Provider: HARLEY NIELSEN MD Copy to: JOHN DAVIS PRETZEL COOKER ? Final Pathologic Diagnosis: A. ENDOCERVIX, CURETTAGE: - ??Fragments of benign squamous mucosa. B. CERVIX, 11 O'CLOCK, BIOPSY: - ??Focal area suspicious but not definitive for low g rade squamous intraepithelial lesion. See comment. Comment: Histologic sections of specimen B show a focal a reggie with mild hyperchromasia, koilocytic-like changes, and one binucleated marquez l. The area is suspicious for LSIL, however, it disappears on deeper levels, making definitive diagnosis difficult. Clinical correlation is recommended. Dr. Peralta 01/30/2018 9:43 AM Document reviewed and electronically signed by: PAULINO PERALTA MD Report ??Date: 01/30/2018 09:56 By the signature above, the attending physician certif ies that he/she has personally conducted a gross and/or microscopic examin ation of the described specimens and rendered or confirmed the above diagnosi s. Specimen(s) Received: A. ??ECC B. ??11 o'clock biopsy Clinical History: ASCUS, + HPV, S/P LEEP 2017 Gross Description: A. ?Received in formalin labelled with proper p atient identification (initials R, A) and endocer vix curettage is an aggregate of light leija viscous material (0.6 x 0.5 x 0.1 cm). Submitted in toto in A1 . B. ?Received in formalin labelled with proper p atient identification (initials R, A) and cx 11 o'clock is a single white tissue fragment admixed with clear mucus (0.3 x 0.2 x 0.1 cm). Submitted intac t in B1. Stephani Mayorga 01/27/2018 9:24 AM End of Report Specimen Performing Organization Address City/State/ZIP Code Phon e Number [facility] [address] [place] [address] SERVICES documented in this encounter Visit Diagnoses Not on filedocumented in this encounter Care Teams Hotel Reservationist Relationship Specialty Start Date End Date Unknown, Provider, PCP - General 03/01/15 02/22/19 documented as of this encounter
--- OUTSIDE RECORDS SUMMARY | 2021-11-07 01:39 | XMS_ITS | Encounter Summary ---
:1985 Author Organization [facility] Address [address] [place] [address] Care Team Providers Name Role Phone Kayley Waters CK Primary Care Provider Encounter Details Date Type Department Care Team Description 10/04/2021 Lab Requisition [facility] Outr Resulting Lab, Pathology & Laboratory Provider [facility] [address] [place], [place] [phone] Social History Tobacco Use Types Packs/Day Years Used Date Never Assessed Sex Assigned at Date Recorded Not on file documented as of this encounter Plan of Treatment Not on filedocumented as of this encounter Procedures Procedure Name Priority Date/Time Associated Comments Diagnosis THYROPEROXIDASE ANTIBODY Routine 10/04/2021 15:05 Results for this EDT procedure are i n the results section. RUBELLA IGG ANTIBODY Routine 10/04/2021 15:05 Res ults for this EDT procedure are i n the results section. VARICELLA IGG ANTIBODY Routine 10/04/2021 15:05 R esults for this EDT procedure are i n the results section. documented in this encounter Results (ABNORMAL) THYROPEROXIDASE ANTIBODY (10/04/2021 15:05 EDT) Pathologist Sig nature Thyroperoxidase Ab >1300 (H) <=60 U/mL [facility] Specimen Blood - Venous blood (substance) Performing Organization Address City/State/ZIP Code Phon e Number [facility] [address] [place] [address] SERVICES VARICELLA IGG ANTIBODY (10/04/2021 15:05 EDT) Varicella IgG Ab PositiveComment: See Note [facility] Presence of LABORATORY SERVICES detectable Varicella Zoster virus IgG antibodies. Specimen Blood - Venous blood (substance) Performing Organization Address City/State/ZIP Code Phon e Number [facility] [address] [place] [address] SERVICES RUBELLA IGG ANTIBODY (10/04/2021 15:05 EDT) Rubella IgG Ab PositiveComment: See Note [facility] Positive for IgG LABORATORY SERVICES antibodies to Rubella virus. Specimen Blood - Venous blood (substance) Performing Organization Address City/[facility]/ZIP Code Phon e Number [facility] [address] [place] [address] SERVICES documented in this encounter Visit Diagnoses Not on filedocumented in this encounter Care Teams Plant Guide Relationship Specialty Start Date End Date Kayley Waters NP PCP - General 02/23/[address] [place] [address] documented as of this encounter
--- OUTSIDE RECORDS SUMMARY | 2021-11-07 01:39 | XMS_ITS | Encounter Summary ---
:1985 Author Organization [facility] Address [address] [place] [address] Care Team Providers Name Role Phone Kayley Waters CHIEF ACCOUNTING OFFICER Primary Care Provider Encounter Details Date Type Department Care Team Description 10/05/2021 Lab Requisition [facility] Outr Resulting Lab, Pathology & Laboratory Provider [facility] [address] [place], [place] [id number] Social History Tobacco Use Types Packs/Day Years Used Date Never Assessed Sex Assigned at Date Recorded Not on file documented as of this encounter Plan of Treatment Not on filedocumented as of this encounter Procedures Procedure Name Priority Date/Time Associated Comments Diagnosis CHLAMYDIA/N. Routine 10/04/2021 13:40 Results for this GONORRHOEAE AMPLIFIED EDT proced ure are in RNA the results section. documented in this encounter Results CHLAMYDIA/N. GONORRHOEAE AMPLIFIED RNA (10/04/2021 13:40 EDT) Pathologist Sig nature Gonococcus Result Negative Negative [facility] Chlamydia Result Negative Negative [facility] Specimen Swab - Entire endocervix (body structure ) Performing Organization Address City/State/ZIP Code Phon e Number [facility] [address] [place] [address] SERVICES documented in this encounter Visit Diagnoses Not on filedocumented in this encounter Care Teams Dip Dyer Relationship Specialty Start Date End Date Kayley Waters NP PCP - General 02/23/[address] [place] [phone] documented as of this encounter
--- OUTSIDE RECORDS SUMMARY | 2021-11-07 01:39 | XMS_ITS | Encounter Summary ---
:1985 Author Organization [facility] Address [address] [place] [address] Care Team Providers Name Role Phone Kayley Waters NP Primary Care Provider Encounter Details Date Type Department Care Team Description 08/20/2021 Lab Requisition [facility] Outr Resulting Lab, Pathology & Laboratory Provider [facility] [address] [place], [place] [phone] Social History Tobacco Use Types Packs/Day Years Used Date Never Assessed Sex Assigned at Date Recorded Not on file documented as of this encounter Plan of Treatment Not on filedocumented as of this encounter Procedures Procedure Name Priority Date/Time Associated Diagnosis Comme nts FSH Routine 08/20/2021 15:00 EDT Results for this procedure are i n the results section . documented in this encounter Results FSH (08/20/2021 15:00 EDT) Pathologist Sig nature FSH 0.7 See Note mIU/mL [facility] Specimen Blood - Venous blood (substance) Narrative [facility] - 08/20/2021 22:11 EDT NOTE: Female FSH Reference Ranges (>= 13 Menst ruating): PHYSIOLOGICAL STATUS ? REFE RENCE RANGE ? ---- Follicular (-12 to -4 days): ?? 2.5 - 1 0.2 mIU/mL Midcycle (-3 to +2 days): ?3.4 - 33.4 mIU/mL Luteal (+4 to +12 days): ? 1.5 - 9.1 mIU/mL Postmenopausal: ? 23.0 - 116.3 mIU/mL Reference Ranges for female patients <13 years old have not been established. Performing Organization Address City/State/ZIP Code Phon e Number [facility] [address] [place] [address] SERVICES documented in this encounter Visit Diagnoses Not on filedocumented in this encounter Care Teams Medical Editor Relationship Specialty Start Date End Date Kayley Waters NP PCP - General 02/23/[address] [place] [address] documented as of this encounter
--- OUTSIDE RECORDS SUMMARY | 2021-11-07 01:39 | XMS_ITS | Encounter Summary ---
:1985 Author Organization [facility] Address [address] [place] [address] Care Team Providers Name Role Phone Unknown, Provider Primary Care Provider Encounter Details Date Type Department Care Team Description 02/19/2019 Results Only [facility]- Khoa Epps MD [phone] [place] [phone] Social History Tobacco Use Types Packs/Day Years Used Date Never Assessed Sex Assigned at Date Recorded Not on file documented as of this encounter Plan of Treatment Not on filedocumented as of this encounter Procedures Procedure Name Priority Date/Time Associated Diagnosis Comme nts SURGICAL PATHOLOGY Routine 02/19/2019 15:40 Resul ts for this EDT procedure are i n the results section. documented in this encounter Results SURGICAL PATHOLOGY (02/19/2019 15:40 EDT) Pathology Report: SURGICAL PATHOLOGY REPORT [facility] Reports generated via electronic interface contain surya ginal data; LABORATORY however they are lacking the format of the original re port. SERVICES Caution should be taken when reading/interpreting unfo rmatted reports. Name: ? LO DEXTER ? Accession #: ? [id number] ? : ? 1985 (Age: 3 3) ??F ? Collect Date: ? 02/19/2019 ? Location: ? [facility] ? Receive Date: ? 02/23/20 19 ? Provider: KHOA DE LA TORRE MD Copy to: JOHN DAVIS PLAYER PIANO TECHNICIAN ? Final Pathologic Diagnosis: A. CERVIX, 12 O'CLOCK, BIOPSY: - Ectocervical mucosa with mild reactive changes. B. ENDOCERVIX, CURETTAGE: - Minute fragments of benign endocervical epithelium. - Superficial fragments of benign squamous epithelium. Document reviewed and electronically signed by: WILMAR WINKLER MD Report ??Date: 02/23/2019 14:33 By the signature above, the attending physician certif ies that he/she has personally conducted a gross and/or microscopic examin ation of the described specimens and rendered or confirmed the above diagnosi s. Specimen(s) Received: A. ??Cervix 12 o'clock (#1) B. ??ECC (#2) Clinical History: Colposcopy in progress due to abnormal PAP & HR HPV, P ap 02/01/19 ASCUS ,(+) HR HPV, 12/06/16 ASCUS, (+) H R HPV, 03/07/2017 [place] II by LEEP pathology (margins clear); please fax results to : [phone] Gross Description: A. ?Received in formalin labelled with proper p atient identification (initials R, A) and cervix 12 o'clock is a single cotton-white white tissue (0.3 x 0.2 x 0.2 cm). The specimen is submitted entirely in A1. B. ?Received in formalin labelled with proper p atient identification (initials R, A) and endocervical curettage is an agg regate of cloudy mucin (1.1 x 1.1 x 0.6 cm). The specimen is submitted entire ly in B1. ZOYA Ayers (ASCP) 02/22/2019 3:44 PM End of Report Specimen Performing Organization Address City/State/ZIP Code Phon e Number [facility] [address] [place], [place] [id number] SERVICES documented in this encounter Visit Diagnoses Not on filedocumented in this encounter Care Teams Meat Cooler Relationship Specialty Start Date End Date Unknown, Provider, PCP - General 03/01/15 02/22/19 documented as of this encounter
--- OUTSIDE RECORDS SUMMARY | 2021-11-07 01:39 | XMS_ITS | Encounter Summary ---
:1985 Author Organization [facility] Address [address] [place] [address] Care Team Providers Name Role Phone Kayley Waters CK Primary Care Provider Encounter Details Date Type Department Care Team Description 07/03/2021 Lab Requisition [facility] Center Rani Ramirez En counter for other Pathology & A, COURT RECORDER general examination Laboratory Medicine [address] [place], [place] 111 [facility] [id number] [place], [place] [id number] Social History Tobacco Use Types Packs/Day Years Used Date Never Assessed Sex Assigned at Date Recorded Not on file documented as of this encounter Plan of Treatment Not on filedocumented as of this encounter Procedures Procedure Name Priority Date/Time Associated Comments Diagnosis PAP TEST Today 07/03/2021 15:40 Encounter for other Resu lts for this EDT general examination procedur e are in the results section. CHLAMYDIA/N. Today 07/03/2021 15:40 Results for this GONORRHOEAE AMPLIFIED EDT proced ure are in RNA, THINPREP the results section. HUMAN PAPILLOMAVIRUS Today 07/03/2021 15:40 Encounter for ot her Results for this (HPV) DETECTION-HIGH EDT general examination procedure are in RISK TYPES the results section. documented in this encounter Results HUMAN PAPILLOMAVIRUS (HPV) DETECTION-HIGH RISK TYPES (07/03/2021 15:40 EDT) Human Papillomavirus NegativeComment: No Negative [facility] (HPV) Detection-High E6 or E7 mRNA is CENTER LABORATOR Y Types detected from HPV SERVICES types 16,18,31,33,35,39,45 ,51,52,56,58,59,66, and 68 by cold header mediated amplification. Specimen Pap Test - Cervix and/or Endocervix Performing Organization Address City/State/ZIP Code Phon e Number [facility] [address] [place] [address] SERVICES PAP TEST (07/03/2021 15:40 EDT) Specimens A. Cervix and/or [facility] Endocervix , ThinPrep CENTER Imaging System with LABORATORY Manual Evaluation SERVICES Specimen Adequacy Satisfactory for [facility] Evaluation - CENTER transformation zone LABORATORY component absent SERVICES General Negative for [facility] Categorization intraepithelial CENTER lesion or malignancy LABORATORY SERVICES Descriptive Shift in diego [facility] Diagnosis present suggestive of CENTER bacterial vaginosis. LABORATORY SERVICES Attestation . [facility] CENTER signed by KAM Sweet CT(ASCP ) on SERVICES 07/12/2021 at 07 18 Clinical History See below [facility] SERVICES HPV The result for the Human Pap illomavirus (HPV) Detection-High Risk Types is Negative. No E6 or E7 mRNA is detected from HPV types 16,18,31,33,35,39,45,51,52,56,58,59,66, and 68 by cold header mediated [facility] amplification.Testing was pe rformed on specimen [id number] and was resulted on 07/12/2021 0716 EDT by RKEHA, LAB INSTRUMENT RESULTS IN [facility] SERVICES Performing Lab [facility] LAB [facility] SERVICES Scanned Images [facility] SERVICES Specimen Pap Test - Cervix and/or Endocervix Performing Organization Address City/State/ZIP Code Phon e Number [facility] [address] [place] [address] SERVICES CHLAMYDIA/N. GONORRHOEAE AMPLIFIED RNA, THINPREP (07/03/2021 15:40 EDT) Pathologist Sig nature Gonococcus Result Negative Negative [facility] SERVICES Chlamydia Result Negative Negative [facility] SERVICES Specimen Pap Test - Cervix and/or Endocervix Performing Organization Address City/State/ZIP Code Phon e Number [facility] [address] [place] [address] SERVICES documented in this encounter Visit Diagnoses Diagnosis Encounter for other general examination documented in this encounter Care Teams Ski Base Trimmer Relationship Specialty Start Date End Date Kayley Waters NP PCP - General 02/23/[address] [place] [address] documented as of this encounter
--- OUTSIDE RECORDS SUMMARY | 2021-11-07 01:39 | XMS_ITS | Encounter Summary ---
:1985 Author Organization [facility] Address [address] [place] [address] Care Team Providers Name Role Phone Kayley Waters NP Primary Care Provider Encounter Details Date Type Department Care Team Description 08/20/2021 Lab Requisition [facility] Outr Resulting Lab, Pathology & Laboratory Provider [facility] [address] [place], [place] [id number] Social History Tobacco Use Types Packs/Day Years Used Date Never Assessed Sex Assigned at Date Recorded Not on file documented as of this encounter Plan of Treatment Not on filedocumented as of this encounter Procedures Procedure Name Priority Date/Time Associated Diagnosis Comme nts THYROID ANTIBODIES Routine 08/20/2021 15:05 Resul ts for this EDT procedure are i n the results section. documented in this encounter Results (ABNORMAL) THYROID ANTIBODIES (08/20/2021 15:05 EDT) Pathologist Sig nature Anti-Thyroglobulin 24 <=60 U/mL [facility] SERVICES Thyroperoxidase Ab >1300 (H) <=60 U/mL [facility] SERVICES Specimen Blood - Venous blood (substance) Performing Organization Address City/State/ZIP Code Phon e Number [facility] [address] [place] [address] SERVICES documented in this encounter Visit Diagnoses Not on filedocumented in this encounter Care Teams Head Teller Relationship Specialty Start Date End Date Kayley Waters NP PCP - General 02/23/[address] [place] [phone] documented as of this encounter
--- OUTSIDE RECORDS SUMMARY | 2021-11-07 01:39 | XMS_ITS | Encounter Summary ---
:1985 Author Organization [facility] Address [address] [place] [address] Care Team Providers Name Role Phone Unknown, Provider Primary Care Provider Encounter Details Date Type Department Care Team Description 01/26/2018 Hospital Encounter [facility] [place] Unknown, Provider, Javed Scott MD 0 [facility] [phone] [place] [address] (Work) [phone] Social History Tobacco Use Types Packs/Day Years Used Date Never Assessed Sex Assigned at Date Recorded Not on file documented as of this encounter Discharge Disposition Disposition Code Departure Means Destination Home or Self Residential documented in this encounter Plan of Treatment Not on filedocumented as of this encounter Visit Diagnoses Not on filedocumented in this encounter Care Teams Pipe Bender Relationship Specialty Start Date End Date Unknown, Provider, PCP - General 03/01/15 02/22/19 documented as of this encounter
--- OUTSIDE RECORDS SUMMARY | 2021-11-07 01:39 | XMS_ITS | Encounter Summary ---
:1985 Author Organization [facility] Address [address] [place] [address] Care Team Providers Name Role Phone LettyKayley jerome CK Primary Care Provider Encounter Details Date Type Department Care Team Description 10/04/2021 Lab Requisition [facility] Outr Resulting Lab, Pathology & Laboratory Provider [facility] [address] [place], [place] [phone] Social History Tobacco Use Types Packs/Day Years Used Date Never Assessed Sex Assigned at Date Recorded Not on file documented as of this encounter Plan of Treatment Not on filedocumented as of this encounter Procedures Procedure Name Priority Date/Time Associated Comments Diagnosis HOLD SST Today 10/04/2021 15:05 Results for this EDT procedure are i n the results section. HOLD SST Today 10/04/2021 15:05 Results for this EDT procedure are i n the results section. HIV 1/2 ANTIGEN AND Today 10/04/2021 15:05 Resu lts for this ANTIBODY, 4TH EDT procedure are in GENERATION the results section. documented in this encounter Results HOLD SST (10/04/2021 15:05 EDT) Pathologist Sig nature Hold Hold [facility] LABORATOR Y SERVICES Specimen Blood - Venous blood (substance) Performing Organization Address City/[facility]/ZIP Code Phon e Number [facility] [address] [place] [address] SERVICES HOLD SST (10/04/2021 15:05 EDT) Pathologist Sig nature Hold Hold [facility] SERVICES Specimen Blood - Venous blood (substance) Performing Organization Address City/State/ZIP Code Phon e Number [facility] [address] [place] [address] SERVICES HIV 1/2 ANTIGEN AND ANTIBODY, 4TH GENERATION (10/04/2021 15:05 EDT) HIV 1 and 2 NegativeComment: If Negative [facility] Antibody/p24 acute HIV-1 LABORATORY Antigen, 4th infection is SERVICES Generation suspected in a high risk patient, submit plasma specimen for HIV-1 RNA quantitation test. Specimen Blood - Venous blood (substance) Narrative [facility] SERVICES - 10/05/2021 9:45 EDT Fourth Generation assay performed on the Siemens Soseiaur XPT. Performing Organization Address City/State/ZIP Code Phon e Number [facility] [address] [place] [address] SERVICES documented in this encounter Visit Diagnoses Not on filedocumented in this encounter Care Teams Farm Management Professor Relationship Specialty Start Date End Date Kayley Waters NP PCP - General 02/23/[address] [place] [phone] documented as of this encounter
--- OUTSIDE RECORDS SUMMARY | 2021-11-07 01:39 | XMS_ITS | Encounter Summary ---
:[address] [facility] Address [address] [place] [address] Care Team Providers Name Role Phone LettyKayley jerome CK Primary Care Provider Encounter Details Date Type Department Care Team Description 06/11/2021 Lab Requisition [facility] Outr Resulting Lab, Pathology & Laboratory Provider [facility] [address] [place], [place] [phone] Social History Tobacco Use Types Packs/Day Years Used Date Never Assessed Sex Assigned at Date Recorded Not on file documented as of this encounter Plan of Treatment Not on filedocumented as of this encounter Procedures Procedure Name Priority Date/Time Associated Diagnosis Comme nts ESTRADIOL, ADULTS Routine 06/11/2021 12:15 Result s for this EST procedure are i n the results section. documented in this encounter Results ESTRADIOL, ADULTS (06/11/2021 12:15 EST) Estradiol 98 See Note pg/mL [facility] Comment: LABORATORY SERVICES NOTE: FEMALE REFERENCE RANGES: MENSTRUATING ? By cycle day relative to LH peak Follicular ?(-12 to -4 days) ??20-144 pg/mL Midcycle ?(-3 to +2 days) ?? 64-357 pg/mL Luteal ?(+4 t0 +12 days) ??56-214 pg/mL POSTMENOPAUSAL ?<32 pg/mL *Cross reactivity with Fulve strant could lead to a falsely elevated estradiol result in patients treated with this drug. Specimen Blood - Venous blood (substance) Performing Organization Address City/State/ZIP Code Phon e Number [facility] [address] [place] [address] SERVICES documented in this encounter Visit Diagnoses Not on filedocumented in this encounter Care Teams Mobile Sales Technician Relationship Specialty Start Date End Date Kayley Waters NP PCP - General 02/23/[address] [place] [address] documented as of this encounter
--- OUTSIDE RECORDS SUMMARY | 2021-11-07 01:39 | XMS_ITS | Clinical Summary ---
:1985 Author Organization [facility] Address [address] [place] [address] Care Team Providers Name Role Phone LettyKalyey jerome CK Primary Care Provider Encounters Date Type Specialty Care Team Description 10/05/2021 Lab Requisition Clinical [facility] Outr Resulting Lab , Provider 10/04/2021 Lab Requisition Clinical Laboratory Outr Resulting Lab , Provider 10/04/2021 Lab Requisition Clinical Laboratory Outr Resulting Lab , Provider 10/04/2021 Lab Requisition Clinical Laboratory Outr Resulting Lab , Provider 08/20/2021 Lab Requisition Clinical Laboratory Outr Resulting Lab , Provider 08/20/2021 Lab Requisition Clinical Laboratory Outr Resulting Lab , Provider from Last 3 Months Social History Tobacco Use Types Packs/Day Years Used Date Never Assessed Sex Assigned at Date Recorded Not on file Plan of Treatment Health Maintenance Due Date Last Done Comments COVID-19 Vaccine (#1) 1990 Hepatitis C Screen Completed 10/04/2021 Procedures Procedure Name Priority Date/Time Associated Comments Diagnosis HOLD SST Today 10/04/2021 15:05 Results for this EDT procedure are i n the results section. HOLD SST Today 10/04/2021 15:05 Results for this EDT procedure are i n the results section. HEPATITIS B SURFACE Routine 10/04/2021 15:05 Resu lts for this ANTIGEN EDT procedure are i n the results section. HEPATITIS C AB W REFLEX Routine 10/04/2021 15:05 Results for this TO HCV RNA BY PCR EDT procedure are in the results section. THYROPEROXIDASE ANTIBODY Routine 10/04/2021 15:05 Results for [...] 15:05 Resu lts for this ANTIBODY, 4TH GENERATION EDT pro cedure are in the results section. CHLAMYDIA/N. GONORRHOEAE Routine 10/04/2021 13:40 Results for this AMPLIFIED RNA EDT procedure are in the results section. THYROID ANTIBODIES Routine 08/20/2021 15:05 Resul ts for this EDT procedure are i n the results section. FSH Routine 08/20/2021 15:00 Results for this EDT procedure are i n the results section. from Last 3 Months Results HOLD SST (10/04/2021 15:05 EDT)Only the most recent of2 resultswithin the time period is included. Pathologist Sig nature Hold Hold [facility] SERVICES Specimen Blood - Venous blood (substance) Performing Organization Address [facility]/ZIP Code Phon e Number [facility] [address] [place] [address] SERVICES (ABNORMAL) THYROPEROXIDASE ANTIBODY (10/04/2021 15:05 EDT) Pathologist Sig nature Thyroperoxidase Ab >1300 (H) <=60 U/mL [facility] SERVICES Specimen Blood - Venous blood (substance) Performing Organization Address [facility]/ZIP Code Phon e Number [facility] [address] [place] [address] SERVICES HEPATITIS C AB W REFLEX TO HCV RNA BY PCR (10/04/2021 15:05 EDT) Pathologist Sig nature Hep C Antibody Negative Negative [facility]OR[facility] ORY SERVICES Specimen Blood - Venous blood (substance) Performing Organization Address City/[facility]/ZIP Code Phon e Number [facility] [address] [place] [address] SERVICES RUBELLA IGG ANTIBODY (10/04/2021 15:05 EDT) Rubella IgG Ab PositiveComment: See Note [facility] Positive for IgG LABORATORY SERVICES antibodies to Rubella virus. Specimen Blood - Venous blood (substance) Performing Organization Address City/[facility]/ZIP Code Phon e Number [facility] [address] [place] [address] SERVICES HEPATITIS B SURFACE ANTIGEN (10/04/2021 15:05 EDT) Pathologist Sig nature Hep B Surface Ag Negative Negative [facility] SERVICES Specimen Blood - Venous blood (substance) Performing Organization Address [facility] Phon e Number [facility] [address] [place] [address] SERVICES VARICELLA IGG ANTIBODY (10/04/2021 15:05 EDT) Varicella IgG Ab PositiveComment: See Note [facility] Presence of LABORATORY SERVICES detectable Varicella Zoster virus IgG antibodies. Specimen Blood - Venous blood (substance) Performing Organization Address [facility] Phon e Number [facility] [address] [place] [address] SERVICES HIV 1/2 ANTIGEN AND ANTIBODY, 4TH GENERATION (10/04/2021 15:05 EDT) HIV 1 and 2 NegativeComment: If Negative [facility] Antibody/p24 acute HIV-1 LABORATORY Antigen, 4th infection is SERVICES Generation suspected in a high risk patient, submit plasma specimen for HIV-1 RNA quantitation test. Specimen Blood - Venous blood (substance) Narrative [facility] SERVICES - 10/05/2021 9:45 EDT Fourth Generation assay performed on the Siemens Centaur XPT. Performing Organization Address [facility] Phon e Number [facility] [address] [place] [address] SERVICES CHLAMYDIA/N. GONORRHOEAE AMPLIFIED RNA (10/04/2021 13:40 EDT) Pathologist Sig nature Gonococcus Result Negative Negative [facility] SERVICES Chlamydia Result Negative Negative [facility] SERVICES Specimen Swab - Entire endocervix (body structure ) Performing Organization Address [facility] Phon e Number [facility] [address] [place] [address] SERVICES (ABNORMAL) THYROID ANTIBODIES (08/20/2021 15:05 EDT) Pathologist Sig nature Anti-Thyroglobulin 24 <=60 U/mL [facility] SERVICES Thyroperoxidase Ab >1300 (H) <=60 U/mL [facility] SERVICES Specimen Blood - Venous blood (substance) Performing Organization Address [facility] Phon e Number [facility] [address] [place] [address] SERVICES FSH (08/20/2021 15:00 EDT) Pathologist Sig nature FSH 0.7 See Note mIU/mL [facility] TORY SERVICES Specimen Blood - Venous blood (substance) Narrative [facility] SERVICES - 08/20/2021 22:11 EDT [...] Organization Address City/State/ZIP Code Phon e Number [facility] [address] [place] [address] SERVICES from Last 3 Months Insurance Payer Benefit Plan / Subscriber ID Effective Phone Address T ype Group Dates [place] [id number] 2020-Prese [address] [place] nt [facility] [id number] [phone] (Work) Audra Steward Personal/Family Self [address] (Home) [place], [place] [phone] (Work) Audra Steward Personal/Family Self [address] (Home) [place], [place] [phone] (Work) Bin,Audra M Personal/Family Self [address] [facility] (Home) [place], [place] [phone] (Work) Bin,Audra M Personal/Family Self [address] [facility] (Home) [place], [place] [phone] (Work) Steward,Audra M Personal/Family Self [address] [facility] (Home) [place], [place] [phone] (Work) Steward,Audra M Personal/Family Self [address] [facility] (Home) [place], [place] [phone] (Work) Bin,Audra Personal/Family Self [address] [facility] (Home) [place], [place] [phone] (Work) Care Teams Bar Machine Operator Multiple Spindle Relationship Specialty Start Date End Date Kayley Waters NP PCP - General 02/23/[address] [place] [phone]
--- OUTSIDE RECORDS SUMMARY | 2021-11-07 01:39 | XMS_ITS | Encounter Summary ---
:1985 Author Organization [facility] Address [address] [place] [address] Care Team Providers Name Role Phone Unknown, Provider Primary Care Provider Kyaley Waters NP Primary Care Provider Encounter Details Date Type Department Care Team Description 02/19/2019 Hospital Encounter [facility] [place] Unknown, Provider, [facility] 0 [facility] [phone] [place] [address] (Work) [phone] Social History Tobacco Use Types Packs/Day Years Used Date Never Assessed Sex Assigned at Date Recorded Not on file documented as of this encounter Plan of Treatment Not on filedocumented as of this encounter Visit Diagnoses Not on filedocumented in this encounter Additional Health Concerns Infection Onset Date Last Indicated Resolved Time COVID-19 03/16/2021 03/16/2021 04/05/2021 22:15 EST documented as of this encounter Care Teams Appraisal Technician Relationship Specialty Start Date End Date Unknown, Provider, PCP - General 03/01/15 02/22/19 Kayley Waters NP PCP - General 02/23/[address] [place] [phone] documented as of this encounter
--- OUTSIDE RECORDS SUMMARY | 2021-11-07 01:40 | XMS_ITS | Encounter Summary ---
:1985 Author Organization [facility] Address [address] [place] [address] Care Team Providers Name Role Phone Unknown, Provider Primary Care Provider Encounter Details Date Type Department Care Team Description 12/08/2017 Hospital Encounter [facility] [place] Unknown, Provider, Javed Scott MD 0 [facility] [phone] [place] [address] (Work) [phone] Social History Tobacco Use Types Packs/Day Years Used Date Never Assessed Sex Assigned at Date Recorded Not on file documented as of this encounter Discharge Disposition Disposition Code Departure Means Destination Home or Self Retirement documented in this encounter Plan of Treatment Not on filedocumented as of this encounter Visit Diagnoses Not on filedocumented in this encounter Care Teams Staff Counsel Relationship Specialty Start Date End Date Unknown, Provider, PCP - General 03/01/15 02/22/19 documented as of this encounter
--- OUTSIDE RECORDS SUMMARY | 2021-11-07 01:40 | XMS_ITS | Encounter Summary ---
:1985 Author Organization [facility] Address [address] [place] [address] Care Team Providers Name Role Phone Unknown, Provider Primary Care Provider Encounter Details Date Type Department Care Team Description 12/06/2016 Hospital Encounter [facility] [place] Unknown, Provider, Javed Scott MD 0 [facility] [phone] [place] [address] (Work) [phone] Social History Tobacco Use Types Packs/Day Years Used Date Never Assessed Sex Assigned at Date Recorded Not on file documented as of this encounter Discharge Disposition Disposition Code Departure Means Destination Home or Self Intermediate documented in this encounter Plan of Treatment Not on filedocumented as of this encounter Visit Diagnoses Not on filedocumented in this encounter Care Teams Lease Operator Relationship Specialty Start Date End Date Unknown, Provider, PCP - General 03/01/15 02/22/19 documented as of this encounter
--- OUTSIDE RECORDS SUMMARY | 2021-11-07 01:40 | XMS_ITS | Encounter Summary ---
:1985 Author Organization [facility] Address [address] [place] [address] Care Team Providers Name Role Phone Unavailable Primary Care Provider Unavailable Encounter Details Date Type Department Care Team Description 08/19/2006 Results Only [facility] - Donavan Mcgovern MD conversion [address] [place] [address] Social History Tobacco Use Types Packs/Day Years Used Date Never Assessed Sex Assigned at Date Recorded Not on file documented as of this encounter Plan of Treatment Not on filedocumented as of this encounter Procedures Procedure Name Priority Date/Time Associated Diagnosis Comme nts CYTOPATHOLOGY Routine 08/19/2006 0:00 EDT Results for this procedure are i n the results section . documented in this encounter Results CYTOPATHOLOGY (08/19/2006 0:00 EDT) Pathology Report: CYTOPATHOLOGY REPORT [facility] Reports generated via electronic interface contain surya ginal data; however they are lacking the format of the original re port. Caution should be taken when reading/interpreting unfo rmatted reports. Name: ? LO DEXTER ? Accession #: ? [id number] : ? 1985 (Age: 21) ??F ?Collect Date: ? 050 04/2006 Location: ? [facility] ? Receive Date : ? 08/20/2006 Provider: ?DONAVAN SANTANA MD Copy to: ? Specimen/Source: ? ThinPrep Pap Test, Cervix/Endocervix, processed on [employer] ThinPrep Imaging System, with manual evaluation Last Menstrual Period: ? 07/26/06 Other: ? HPVA - HPV testing requested if ASC-US on the current ThinPrep Pap test. ? SPECIMEN ADEQUACY ? Satisfactory for Evaluation - transformation zone component present GENERAL CATEGORIZATION ? Negative for Intraepithelial Lesion or Malignan cy ? Document reviewed and electronically signed by: ? THANH Baird(ASCP) ? Report Date: ??08/22/2006 10:32 End of Report Specimen Performing Organization Address City/State/ZIP Code Phon e Number [facility] [address] [place] [address] SERVICES [facility] [address] [place] [address] documented in this encounter Visit Diagnoses Not on filedocumented in this encounter
--- OUTSIDE RECORDS SUMMARY | 2021-11-07 01:40 | XMS_ITS | Encounter Summary ---
:1985 Author Organization [facility] Address [address] [place] [address] Care Team Providers Name Role Phone Unavailable Primary Care Provider Unavailable Encounter Details Date Type Department Care Team Description 07/25/2004 Results Only [facility] - Joe Walsh CNM [address] [place] [address] [place], [place] [address] [phone] Social History Tobacco Use Types Packs/Day Years Used Date Never Assessed Sex Assigned at Date Recorded Not on file documented as of this encounter Plan of Treatment Not on filedocumented as of this encounter Procedures Procedure Name Priority Date/Time Associated Diagnosis Comme nts CYTOPATHOLOGY Routine 07/25/2004 0:00 EDT Results for this procedure are i n the results section . documented in this encounter Results CYTOPATHOLOGY (07/25/2004 0:00 EDT) Pathology Report: CYTOPATHOLOGY REPORT [facility] Reports generated via electronic interface contain surya ginal data; however they are lacking the format of the original re port. Caution should be taken when reading/interpreting unfo rmatted reports. Name: ? LO DEXTER ? Accession #: ? [id number] : ? 1985 (Age: 19) ??F ?Collect Date: ? 04/0 09/2004 Location: ? [facility] ? Receive Date : ? 07/27/2004 Provider: ?JOE JOHANNA CNM Copy to: ? Specimen/Source: ?ThinPrep Pap Test, Cervix/ Endocervix Last Menstrual Period: ? 01/31/04 Menstrual/ Status: ? Other: ? HPVA - HPV testing requested if ASC-US on the current ThinPrep Pap test. ? SPECIMEN ADEQUACY ? Satisfactory for Evaluation - transformation zone component present GENERAL CATEGORIZATION ? Negative for Intraepithelial Lesion or Malignan cy ? Document reviewed and electronically signed by: ? REG Mccloud(ASCP) ? Report Date: ??08/02/2004 09:32 End of Report Specimen Performing Organization Address City/State/ZIP Code Phon e Number [facility] [address] [place] [address] SERVICES [facility] [address] [place] [address] documented in this encounter Visit Diagnoses Not on filedocumented in this encounter
--- OUTSIDE RECORDS SUMMARY | 2021-11-07 01:40 | XMS_ITS | Encounter Summary ---
:1985 Author Organization [facility] Address [address] [place] [address] Care Team Providers Name Role Phone Unknown, Provider Primary Care Provider Encounter Details Date Type Department Care Team Description 03/07/2017 Results Only [facility]- Harley Martinez MD [phone] [facility] [place], [place] [id number] (Wo rk) Social History Tobacco Use Types Packs/Day Years Used Date Never Assessed Sex Assigned at Date Recorded Not on file documented as of this encounter Plan of Treatment Not on filedocumented as of this encounter Procedures Procedure Name Priority Date/Time Associated Diagnosis Comme [facility] SURGICAL PATHOLOGY Routine 03/07/2017 7:20 EST Re sults for this procedure are i n the results section. documented in this encounter Results SURGICAL PATHOLOGY (03/07/2017 7:20 EST) Pathology Report: SURGICAL PATHOLOGY REPORT [facility] Reports generated via electronic interface conta in original data; [facility] however they are lacking the format of the original re port. SERVICES Caution should be taken when reading/interpreting unfo rmatted reports. Name: ? LO DEXTER ? Accession #: ? [id number] ? : ? 1985 (Age: 3 1) ??F ? Collect Date: ? 03/07/2017 ? Location: ? [facility] ? Receive Date: ? 017 ? Provider: HARLEY NIELSEN MD Copy to: ABEL VILLEGAS NP ? 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 - Margins are negative for squamous intraepithelial le naima. Document reviewed and electronically signed by: PAULINO LEMONS MD Report ??Date: 03/14/2017 21:38 By the signature above, the attending physician certif ies that he/she has personally conducted a gross and/or microscopic examin ation of the described specimens and rendered or confirmed the above diagnosi s. Specimen(s) Received: LEEP 9 to 3 o'clock Clinical History: LAMONT II Gross Description: ? Received in formalin labelled with proper patient identification (initials R, A) and 9 to 3 o'clock is an unoriented ovoid piec e of cervix with cauterized margins (1.2 x 1. 4 cm, excised to a depth of 0.4 cm), with a central 0.4 cm patent slit-like os. One aspect o f the specimen is surfaced by leija-pink ectocervical mucosa, with one raised papule (0.3 x 0.3 x 0.2 cm). The ectocervical margins are inked black and the endocervi miguelito margins are inked blue. Also included with thi s specimen is a small fragment of tissue (0.7 x 0.4 x 0.4 cm). The specimen is radially sectioned in a starr ckwise fashion and entirely submitted as 1-7, with the additional piece o f tissue submitted entirely in 8. Cassette [address] the [address] Hilario 03/10/2017 3:51 PM End of Report Specimen Performing Organization Address City/State/ZIP Code Phon e Number [facility] [address] [place] [address] SERVICES documented in this encounter Visit Diagnoses Not on filedocumented in this encounter Care Teams Talent Consultant Relationship Specialty Start Date End Date Unknown, Provider, PCP - General 03/01/15 02/22/19 documented as of this encounter
--- OUTSIDE RECORDS SUMMARY | 2021-11-07 01:40 | XMS_ITS | Encounter Summary ---
:1985 Author Organization [facility] Address [address] [place] [address] Care Team Providers Name Role Phone Unavailable Primary Care Provider Unavailable Encounter Details Date Type Department Care Team Description 07/20/2009 Results Only [facility] [place], [facility] Laboratory Services - [address] [place], [place] [address] [facility] [address] [place] [address] [phone] Social History Tobacco Use Types Packs/Day Years Used Date Never Assessed Sex Assigned at Date Recorded Not on file documented as of this encounter Plan of Treatment Not on filedocumented as of this encounter Procedures Procedure Name Priority Date/Time Associated Diagnosis Comme [facility] CYTOPATHOLOGY Routine 07/20/2009 0:00 EDT Results for this procedure are i n the results section . documented in this encounter Results CYTOPATHOLOGY (07/20/2009 0:00 EDT) Pathology Report: CYTOPATHOLOGY REPORT ? [facility] Reports generated via electr onic interface contain original data; ? however they are lacking the format of the original report. ? Caution should be taken when reading/interpreting unformatted reports. ? Name: ? DEXTER, LO ? Accession #: ? [id number] ? : ? 1985 (Age: 24) ??F ?Collect Date: ? 07/20/2009 ? Location: ? [facility] ? Receive Date: ? 07/21/2009 ? Provider: ?HOMERO FERREIRAG OOD MECHANICAL MAINTENANCE ENGINEER ? Copy to: ? Specimen/Source: ? Pap Test, Cervix/Endocervix, ThinPrep Imaging System ? with manual evaluation ? Last Menstrual Period: ? 03/07/10 ? Hormonal/Contraceptive Statu s: ? Oral contraceptives ? Other: ? HPVA - HPV testing requested if ASC-US on the current ThinPrep Pap test. ? SPECIMEN ADEQUACY ? Satisfactory for Eval uation ? - transformation zone compon ent present ? GENERAL CATEGORIZATION ? Negative for Intraepi thelial Lesion or Malignancy ? Document reviewed and electr onically signed by: ? Xiang Stumler, CT( CP) ? Report Date: ??04/08/ 2010 14:24 ? End of Report ? Specimen Performing Organization Address City/State/ZIP Code Phon e Number [facility] [address] [place] [address] SERVICES [facility] [address] [place] [address] documented in this encounter Visit Diagnoses Not on filedocumented in this encounter
--- OUTSIDE RECORDS SUMMARY | 2021-11-07 01:40 | XMS_ITS | Encounter Summary ---
:1985 Author Organization [facility] Address [address] [place] [address] Care Team Providers Name Role Phone Unknown, Provider Primary Care Provider Encounter Details Date Type Department Care Team Description 03/07/2017 Hospital Encounter [facility]- [place] Unknown, Provider, Javed Scott MD [address] [facility] [phone] [place] [address] (Work) [phone] Social History Tobacco Use Types Packs/Day Years Used Date Never Assessed Sex Assigned at Date Recorded Not on file documented as of this encounter Discharge Disposition Disposition Code Departure Means Destination Home or Self [facility] documented in this encounter Plan of Treatment Not on filedocumented as of this encounter Visit Diagnoses Not on filedocumented in this encounter Care Teams Lapping Machine Set Up Operator Relationship Specialty Start Date End Date Unknown, Provider, PCP - General 03/01/15 02/22/19 documented as of this encounter
--- OUTSIDE RECORDS SUMMARY | 2021-11-07 01:40 | XMS_ITS | Encounter Summary ---
:1985 Author Organization [facility] Address [address] [place] [address] Care Team Providers Name Role Phone Unknown, Provider Primary Care Provider Encounter Details Date Type Department Care Team Description 12/06/2016 Results Only [facility]- Marce Guerra, TALENT PROGRAM MANAGER [phone] [facility] [place] [address] (Wo rk) Social History Tobacco Use Types Packs/Day Years Used Date Never Assessed Sex Assigned at Date Recorded Not on file documented as of this encounter Plan of Treatment Not on filedocumented as of this encounter Procedures Procedure Name Priority Date/Time Associated Diagnosis Comme nts PAP TEST- RESULT Routine 12/06/2016 0:00 EDT Resu lts for this ONLY procedure are i n the results section. documented in this encounter Results PAP TEST- RESULT ONLY (12/06/2016 0:00 EDT) Pathology Report: CYTOPATHOLOGY REPORT [facility] Reports generated via electronic interface contain surya ginal data; SERVICES however they are lacking the format of the original re port. Caution should be taken when reading/interpreting unfo rmatted reports. Name: ? LO DEXTER ? Accession #: ? [id number] ? : ? 1985 (Age: 3 1) ??F ?Collect Date: ? 12/06/2016 ? Location: ? [facility] ? Receive Date: ? 12/10/19 17 ? Provider: MARCE HARRIS TALENT PROGRAM MANAGER Copy to: ABEL VILLEGAS EUCLID OPERATOR ? Final Report SPECIMEN ADEQUACY ? Satisfactory for Evaluation - transformation zone component present GENERAL CATEGORIZATION ? Epithelial Cell Abnormality INTERPRETATION ? Squamous Cell Abnormality - Atypical squamous c ells, undetermined significance (ASC-US). EDUCATIONAL NOTES/RECOMMENDATIONS ? [facility] recommends foll owing ASCCP's 2012 Updated Consensus Guidelines for the Management of Abnormal Cervical Cancer Screening T ests and Cancer Precursors (JLGTD, 2013; 17(5):S1-S27). ??Conse nsus guidelines are available online at www.asccp.org. Hormonal/Contraceptive status: Yes: nexplanon Specimen/Source: ??Pap Test, Cervix, ThinPrep Imaging System with manual evaluation Document reviewed and electronically signed by: ? VINCENT PEERZ MD ? Report ??Date: 12/19/2016 17:32 HPV with Pap Test ? Date Ordered: ? 12/18/2016 ? Status: ?? Signed Out ?Date Complete: ? 12/20/2016 ? By: ??Sys tem Interface ? Date Reported: ? 12/20/2016 ? Interpretation RESULT: Positive for high or intermediate risk HPV. E6 OR E7 mRNA from one or more types of HPV types 16,1 8,31, 33,35,39,45,51,52,56,58,59,66, and 68 is detected by mds rn mediated amplification. High and intermediate risk HPV types are associated wi th most squamous intraepithelial lesions and cervical can cers. Comments Document reviewed and electronically signed by: ? System Interface ? Report date: 12/20/2016 By the signature above, the attending physician certif ies that he/she has personally conducted a gross and/or microscopic examin ation of the described specimens and rendered or confirmed the above diagnosi s. End of Report Specimen Performing Organization Address City/State/ZIP Code Phon e Number [facility] [address] [place] [address] SERVICES documented in this encounter Visit Diagnoses Not on filedocumented in this encounter Care Teams Tin Flipper Relationship Specialty Start Date End Date Unknown, Provider, PCP - General 03/01/15 02/22/19 documented as of this encounter
--- OUTSIDE RECORDS SUMMARY | 2021-11-07 01:40 | XMS_ITS | Encounter Summary ---
:1985 Author Organization [facility] Address [address] [place] [address] Care Team Providers Name Role Phone Unavailable Primary Care Provider Unavailable Encounter Details Date Type Department Care Team Description 12/04/2007 Before PRISM Converted [facility] - Roni Pollard, Visit (Maple) Maple conversion CNM [address] [place], [place] [id number] [place] [address] Social History Tobacco Use Types Packs/Day Years Used Date Never Assessed Sex Assigned at Date Recorded Not on file documented as of this encounter Plan of Treatment Not on filedocumented as of this encounter Procedures Procedure Name Priority Date/Time Associated Diagnosis Comme nts CYTOPATHOLOGY Routine 12/04/2007 0:00 EDT Results for this procedure are i n the results section . documented in this encounter Results CYTOPATHOLOGY (12/04/2007 0:00 EDT) Pathology Report: CYTOPATHOLOGY REPORT ? [facility] Reports generated via mobilePeople interface contain original data; ? however they are lacking the format of the original report. ? Caution should be taken when reading/interpreting unformatted reports. ? Name: ? DEXTER, LO ? Accession #: ? [id number] ? : ? 1985 (Age: 22) ??F ?Collect Date: ? 12/04/2007 ? Location: ? [facility] ? Receive Date: ? 12/07/2007 ? Provider: ?MAICOL LARSON CNM ? Copy to: ? Specimen/Source: ? ThinPrep Pap Test, Cervix/Endocervix, processed on [employer] ThinPrep Imaging System, wit h manual evaluation ? Last Menstrual Period: ? 6/12/08 ? Menstrual/ Status: ? Other: ? HPVA - HPV testing requested if ASC-US on the current ThinPrep Pap test. ? SPECIMEN ADEQUACY ? Satisfactory for Eval uation ? - transformation zone compon ent absent ? GENERAL CATEGORIZATION ? Negative for Intraepi thelial Lesion or Malignancy ? INTERPRETATION ? Fungal organisms pres ent morphologically consistent with Shannon species. ? Document reviewed and electr onically signed by: ? Katya Verville,CT(ASCP) ? Report Date: ??08/20/ 2008 14:15 ? End of Report ? Specimen Performing Organization Address City/State/ZIP Code Phon e Number [facility] [address] [place] [address] SERVICES [facility] [address] [place] [address] documented in this encounter Visit Diagnoses Not on filedocumented in this encounter
--- OUTSIDE RECORDS SUMMARY | 2021-11-07 01:40 | XMS_ITS | Encounter Summary ---
:[address] [facility] Address [address] [place] [address] Care Team Providers Name Role Phone Unknown, Provider Primary Care Provider Encounter Details Date Type Department Care Team Description 01/17/2017 Results Only [facility]- Harley Martinez MD [phone] [facility] [place], [place] [phone] (Wo rk) Social History Tobacco Use Types Packs/Day Years Used Date Never Assessed Sex Assigned at Date Recorded Not on file documented as of this encounter Plan of Treatment Not on filedocumented as of this encounter Procedures Procedure Name Priority Date/Time Associated Diagnosis Comme [facility] SURGICAL PATHOLOGY Routine 01/17/2017 18:20 Resul ts for this EDT procedure are i n the results section. documented in this encounter Results SURGICAL PATHOLOGY (01/17/2017 18:20 EDT) Pathology SURGICAL PATHOLOGY REPORT [facility] Report: Reports generated via electronic interface conta in original data; [facility] however they are lacking the format of the original re port. SERVICES Caution should be taken when reading/interpreting unfo rmatted reports. Name: ? LO DEXTER ? Accession #: ? [id number] ? : ? 1985 (Age: 3 1) ??F ? Collect Date: ? 01/17/2017 ? Location: ? [facility] ? Receive Date: ? 01/18/20 17 ? Provider: HARLEY NIELSEN MD Copy to: ABEL VILLEGAS CINDER PITMAN ? Final Pathologic Diagnosis: A. ENDOCERVIX, CURETTAGE: - Detached fragments of high grade squamous intraepithelial lesion, favor LAMONT-2. See comment. B. CERVIX, 12 O'CLOCK, BIOPSY: - Transformation zone mucosa with mild reactive epithe lial changes. C. CERVIX, 6 O'CLOCK, BIOPSY: - Focal high grade squamous intraepithelial lesion. Se e comment. Comment: Specimen (A) consists of detached fragments of high gr daphnie squamous intraepithelial lesion. Some of the fragments are some what oriented, and a diagnosis of LAMONT-2 is favored. Specimen (C) consists o f focal high grade squamous intraepithelial lesion with den uded surface. Accurate grading of this lesion is precluded by the d enuded nature of the specimen. [employer] slides of this case were reviewed a t the intradepartmental consultation conference. ?? Immunoperoxidase stains were performed on this case to further characterize the lesion. ANTIBODY(CLONE) ? (BLOCK): ? RESULT P16 (E6H4TM, [place]) ?? (C) ?focal high grade pattern MIB-1 (Ki67) (K2, Leica) ??(C) ?focal hig h grade pattern NOTE: ??One or more of the reagents used in imm unoperoxidase testing in this case may not have been cleared or approved by the U.S. Food and Drug Administration (FDA). ??The FDA has determined that such clearance or approval is not necessary. ??These tests are used for clinical purposes. ??They should not be regarded as investigational or for research. ??These r eagents' performance characteristics have been determined by [facility]. ??The positive and negative controls worked ap propriately. If immunoperoxidase staining has been performed on alcoho l fixed cytology specimens, which has not bee n fully validated, the assays should be interpreted with caution and correlated with clinica l data. ??This laboratory is certified under the Clinical Laboratory Improvement Amendments o f 1987 (CLIA-88) as qualified to perform high complexity clinical laborato ry testing. Dr. Dean 01/22/2017 8:53 AM Document reviewed and electronically signed by: WILMAR DEAN MD Report ??Date: 01/22/2017 15:59 By the signature above, the attending physician certif ies that he/she has personally conducted a gross and/or microscopic examin ation of the described specimens and rendered or confirmed the above diagnosi s. Specimen(s) Received: A. ??ECC B. ??12 o'clock C. ??6 o'clock Clinical History: ASCUS with (+) HR HPV; LMP: 7 years, control Nex planon Gross Description: A. ?Received in formalin labelled with proper p atient identification (initials R, A) and ECC is an aggregate of blood-tinged mucus (1.0 x 0.8 x 0.2 cm). Submitted in toto in block A1. B. ?Received in formalin labelled with proper p atient identification (initials R, A) and cx bx at 12 o'clock is a single pink-leija tissue fragment with attached blood-tinged m ucus (0.3 x 0.2 x 0.2 cm). Submitted intact in block B1. C. ?Received in formalin labelled with proper p atient identification (initials R, A) and cx bx at 6 o'clock is a si ngle pink-leija tissue fragment (0.4 x 0.3 x 0.2 cm). Submitted intact in block C1. ZOYA Hay (ASCP) 01/20/2017 7:54 AM End of Report Specimen Performing Organization Address City/State/ZIP Code Phon e Number [facility] [address] [place] [address] SERVICES documented in this encounter Visit Diagnoses Not on filedocumented in this encounter Care Teams Matlab Developer Relationship Specialty Start Date End Date Unknown, Provider, PCP - General 03/01/15 02/22/19 documented as of this encounter
[2021-11-09 12:51] LABS: Cigarette smoking status non-Smoker; GA used in risk estimate Scan estimate; IVF Pregnancy No; Initial or repeat testing Initial testing; Insulin dependent diabetes No; Maternal Weight 215 lbs; Number of Fetuses 1; Physician Phone Number 802-748-7300; Prev Pregnancy w/NTD No; RECOMMENDED FOLLOW UP None.; Results Summary Normal risk
== END 2021-11-07 01:38 | disposition home or self-care (01) ==
LOC: LBO 01:37
PROVIDERS: PCP Nurse Practitioner Family; Visit Provider Advanced Practice Midwife
DX: Z34.92 Encounter for supervision of normal pregnancy, unspecified, second trimester (principal); Z36.89 Encounter for other specified antenatal screening; Z3A.16 16 weeks gestation of pregnancy
CPT/HCPCS: 36415; 82105

== ENCOUNTER 2021-11-30 01:21 | Outpatient (CLI) | payer MEDICAID, SELFPAY ==
[2021-11-30 08:05] LABS: TSH (W/Ref FT4) 7.04 uIU/mL (0.36-3.74)
[2021-11-30 08:28] LABS: FREE T4 0.82 ng/dL (0.76-1.46)
== END 2021-11-30 01:22 | disposition home or self-care (01) ==
LOC: LBO 01:21
PROVIDERS: PCP Nurse Practitioner Family; Visit Provider Obstetrics & Gynecology
DX: E03.9 Hypothyroidism, unspecified (principal)
CPT/HCPCS: 36415; 84439; 84443

== ENCOUNTER → 2021-12-05 01:25 | Outpatient (CLI) | payer MEDICAID, SELFPAY ==
--- NOTE | 2021-12-05 07:30 | DI.US_ITS ---
Exam(s) US OB 2-3 TRIMESTER EXAM: US OB 2-3 TRIMESTER CLINICAL HISTORY: ,z34.90 TECHNIQUE: Ultrasound performed using standard protocol. COMPARISON: US US PELVIS TRANSVAGINAL from 07/05/2021 FINDINGS: Ob ultrasound was performed utilizing 2nd trimester protocol. There is a single intrauterine gestati on. biometry is consistent with gestational age of 21 weeks 6 days and EDC of April 11. Placenta is posterior with no placenta previa. There is visually a normal quantity of amniotic fluid. heart rate is 148 BPM. anomaly screen is within normal limits as per the attached checklist. IMPRESSION: DATA REPOSITORY:
== END ==
PROVIDERS: PCP Nurse Practitioner Family; Visit Provider Advanced Practice Midwife
DX: Z34.92 Encounter for supervision of normal pregnancy, unspecified, second trimester (principal)
CPT/HCPCS: 76805

== ENCOUNTER 2022-01-29 02:55 | Outpatient (CLI) | payer MEDICAID, SELFPAY ==
[2022-01-29 16:30] LABS: Abs Immature Grans 0.08 10^3/uL (0.0-0.06); Absolute Basophil Count 0.07 10^3/uL (0.0-0.2); Absolute Eosinophil Count 0.32 10^3/uL (0.0-0.7); Absolute Lymphocyte Count 2.65 10^3/uL (1.2-3.4); Absolute Monocyte Count 0.88 10^3/uL (0.1-0.8); Absolute Neutrophil Count 7.91 10^3/uL (1.2-6.7); Basophils % 0.6; Eosinophils % 2.7; HCT 33.1 % (36.0-46.0); HGB 11.5 g/dL (11.2-15.7); Immature Grans % 0.7; Lymphocytes % 22.2; MCH 30.1 pg (27.0-33.0); MCHC 34.7 % (32.0-36.0); MCV 87 fL (80-95); MPV 8.8 fL (8.0-11.0); Monocytes % 7.4; Neutrophils % 66.4; Platelet Count 256 10^3/uL (130-400); RBC 3.82 10^6/uL (3.93-5.22); RDW 13.1 % (11.7-14.6); RDW-SD 41.1 fL; WBC 11.92 10^3/uL (4.4-10.8)
[2022-01-29 16:40] LABS: Glucose,1 Hr (Glucola) 87 mg/dL (80-140)
== END 2022-01-29 02:56 | disposition home or self-care (01) ==
LOC: LBO 02:55
PROVIDERS: PCP Nurse Practitioner Family; Visit Provider Obstetrics & Gynecology
DX: Z34.93 Encounter for supervision of normal pregnancy, unspecified, third trimester (principal)
CPT/HCPCS: 36415; 82950; 85025

== ENCOUNTER 2022-01-29 16:52 | Outpatient (REF) | payer MEDICAID, SELFPAY ==
[2022-01-29 18:15] LABS: *AMPHETAMINES SCREEN URINE Negative (Negative); *BARBITURATES SCREEN URINE Negative (Negative); *BENZODIAZEPINES SCREEN URINE Negative (Negative); Cannabinoids THC Positive (Negative); Cocaine Screen,Urine Negative (Negative); METHADONE URINE SCREEN Negative (Negative); OPIATES URINE SCREEN Negative (Negative)
[2022-01-29 18:16] LABS: Tricyclic Antidepressants Negative (Negative)
[2022-02-02 12:21] LABS: Buprenorphine Negative ng/mL (Cutoff: 5.0); Norbuprenorphine Negative ng/mL (Cutoff: 2.5)
== END 2022-01-29 16:53 | disposition home or self-care (01) ==
LOC: LBN 16:52
PROVIDERS: PCP Nurse Practitioner Family; Visit Provider Obstetrics & Gynecology
DX: O09.523 Supervision of elderly multigravida, third trimester (principal)
CPT/HCPCS: 80307; 80348

== ENCOUNTER 2022-03-06 03:19 | Outpatient (CLI) | payer MEDICAID, SELFPAY ==
[2022-03-06 16:54] LABS: TSH (W/Ref FT4) 2.79 uIU/mL (0.36-3.74)
== END 2022-03-06 03:20 | disposition home or self-care (01) ==
LOC: LBO 03:19
PROVIDERS: PCP Nurse Practitioner Family; Visit Provider Obstetrics & Gynecology
DX: N92.0 Excessive and frequent menstruation with regular cycle (principal)
CPT/HCPCS: 36415; 84443

== ENCOUNTER 2022-04-01 17:51 | Outpatient (REF) | payer MEDICAID, SELFPAY ==
[2022-04-01 20:01] LABS: *AMPHETAMINES SCREEN URINE Negative (Negative); *BARBITURATES SCREEN URINE Negative (Negative); *BENZODIAZEPINES SCREEN URINE Negative (Negative); Cannabinoids THC Positive (Negative); Cocaine Screen,Urine Negative (Negative); METHADONE URINE SCREEN Negative (Negative); OPIATES URINE SCREEN Negative (Negative)
[2022-04-01 20:04] LABS: Tricyclic Antidepressants Negative (Negative)
[2022-04-06 12:10] LABS: Buprenorphine Negative ng/mL (Cutoff: 5.0); Norbuprenorphine Negative ng/mL (Cutoff: 2.5)
== END 2022-04-01 17:52 | disposition home or self-care (01) ==
LOC: LBN 17:51
PROVIDERS: PCP Nurse Practitioner Family; Visit Provider Obstetrics & Gynecology
DX: Z34.93 Encounter for supervision of normal pregnancy, unspecified, third trimester (principal); Z36.85 Encounter for antenatal screening for Streptococcus B; Z3A.37 37 weeks gestation of pregnancy
CPT/HCPCS: 80307; 80348; 87081

== ENCOUNTER 2022-04-15 13:12 | Outpatient (CLI) | payer MEDICAID, SELFPAY ==
[2022-04-15 14:29] VITALS: BP 109/69; PULSE 82
[2022-04-15 14:44] VITALS: BP 109/69; PULSE 82; TEMP 36.6
== END 2022-04-15 14:50 | disposition home or self-care (01) ==
LOC: BCD 13:13 → OBS 14:26
PROVIDERS: PCP Nurse Practitioner Family; Visit Provider Obstetrics & Gynecology
DX: O36.8130 Decreased fetal movements, third trimester, not applicable or unspecified (principal)
CPT/HCPCS: 59025

== ENCOUNTER 2022-04-16 03:40 | Outpatient (CLI) | payer MEDICAID, SELFPAY ==
[2022-04-16 10:33] LABS: Abs Immature Grans 0.03 10^3/uL (0.0-0.06); Absolute Eosinophil Count 0.32 10^3/uL (0.0-0.7); Absolute Lymphocyte Count 1.45 10^3/uL (1.2-3.4); Absolute Monocyte Count 0.65 10^3/uL (0.1-0.8); Absolute Neutrophil Count 8.36 10^3/uL (1.2-6.7); Basophils % 0.6; Eosinophils % 2.9; HCT 35.7 % (36.0-46.0); HGB 11.8 g/dL (11.2-15.7); Immature Grans % 0.3; Lymphocytes % 13.3; MCH 28.1 pg (27.0-33.0); MCHC 33.1 % (32.0-36.0); MCV 85 fL (80-95); MPV 9.4 fL (8.0-11.0); Neutrophils % 76.9; Platelet Count 248 10^3/uL (130-400); RDW 13.6 % (11.7-14.6); RDW-SD 42.3 fL; WBC 10.87 10^3/uL (4.4-10.8)
[2022-04-16 10:34] LABS: Absolute Basophil Count 0.07 10^3/uL (0.0-0.2)
[2022-04-16 11:29] LABS: Source Nasal/Nares
[2022-04-16 12:06] LABS: COVID-19 PCR Negative (Negative)
== END 2022-04-16 03:41 | disposition home or self-care (01) ==
LOC: LBO 03:40
PROVIDERS: PCP Nurse Practitioner Family; Visit Provider Obstetrics & Gynecology
DX: Z78.9 Other specified health status (principal); Z01.818 Encounter for other preprocedural examination
CPT/HCPCS: 36415; 86850; 86900; 86901; 87635; 85025

== ENCOUNTER 2022-04-17 05:51 | Inpatient (IN) | payer MEDICAID, SELFPAY ==
--- NOTE | 2022-04-16 17:28 | W.ANESPRE ---
General Info Date of Service Date Performed: 04/17/22 Height: 5 ft 3 in Weight: 105 kg Body Mass Index (BMI): 41.0 Surgical Procedure: Operation Date: 04/17/22 07:40 Proposed Procedure Side Surgeon p Repeat Section, possible Hysterectomy Joan Gomez DO Meds Allergies and Home Medications Allergies Allergy/AdvReac Type Severity Reaction Status Date / Time Penicillins AdvReac Unknown Nausea Verified 04/16/22 09:59 Environmental Allergy Unknown Uncoded 04/16/22 09:59 Home Medication Medication Instructions Recorded levothyroxine 50 mcg tablet 50 mcg PO DAILY #90 tabs 08/21/21 ondansetron 4 mg disintegrating 4 mg PO TID PRN nausea and 12/12/21 tablet vomiting #90 tabs docusate sodium 100 mg capsule 100 mg PO BID PRN 03/04/22 (Colace) omeprazole 40 mg capsule,delayed 40 mg PO DAILY #60 caps 03/06/22 release PFSH Active Problems Active Problems: Problem Status Onset Code Hypothyroid E03.9 Advanced maternal age (AMA) in BMI 35.0-35.9,adult Z68.35 Z34.90 Previous section Z98.891 Positive test Z32.01 TMJ (temporomandibular joint disorder) M26.609 Atopic dermatitis L20.9 Allergic rhinitis due to pollen J30.1 Medical History Medical History COVID-19 virus infection (~02/2021) History of abnormal cervical Pap smear 2019 with colp - needs repeat pap. Surgical History Surgical History History of section (10/25/04) and 06/29/08 S/P LEEP of cervix (03/10/17) Tobacco Smoking/Tobacco Use Status: Never Passive smoking exposure: No Alcohol Alcohol Intake: current Alcohol intake frequency: holidays/special occasions only Substance Use Substance use: Never Substance use type: does not use Prental History History 3 Para 2 Hx # Term Pregnancies 2 Multiple births Hx # Pregnancies Ectopic pregnancies AB induced Hx Number of Living Children 2 AB spontaneous Past Pregnancies Del. Date GA/Weeks # Preg Succ Route Wgt Sex Labor Lgth Anesthesia Location Prov Complic 10/25/04 [address] Cartwright 06/29/08 [address] Zarco Delivery Date: 10/25/04 Last Updated by: Gisselle Robbins CNM pre-eclampsia IOL, after 24 hours of labor Delivery Date: 06/29/08 Last Updated by: Gisselle Robbins CNM scheduled Vital Signs and Lab Results Vital Signs Most Recent Vital Signs in EMR: Temp Pulse Resp BP Pulse Ox 36.7 C 90 16 112/67 94 04/17/22 06:12 04/17/22 06:17 04/17/22 06:12 04/17/22 06:15 04/17/22 06:17 Lab Results Blood Type / Crossmatch: Patient ABO/Rh O Positive 04/16/22 Antibody Screen NEGATIVE 04/16/22 Complete Blood Count: White Blood Count 10.87 10^3/uL (4.4-10.8) H 04/16/22 10:21 Red Blood Count 4.20 10^6/uL (3.93-5.22) 04/16/22 10:21 Hemoglobin 11.8 g/dL (11.2-15.7) 04/16/22 10:21 Hematocrit 35.7 % (36.0-46.0) L 04/16/22 10:21 Platelet Count 248 10^3/uL (130-400) 04/16/22 10:21 Complete Metabolic Panel: No Data to Display Liver Function Panel: No Data to Display Coagulation Panel: No Data to Display Cardiac Panel: No Data to Display Arterial Blood Gas: No Data to Display Venous Blood Gas: No Data to Display Pancreas Panel: No Data to Display Thyroid Panel: No Data to Display Infectious Disease: Coronavirus (COVID-19)(PCR) Negative (Negative) 04/16/22 10:00 Coronavirus 2019 Source Nasal/Nares 04/16/22 10:00 Blood Cultures: No Data to Display Toxicology Panel: Urine Amphetamines Screen Negative (Negative) 04/01/22 18:41 Urine Benzodiazepines Screen Negative (Negative) 04/01/22 18:41 Urine Barbiturates Screen Negative (Negative) 04/01/22 18:41 Urine Cocaine Screen Negative (Negative) 04/01/22 18:41 Urine Methadone Screen Negative (Negative) 04/01/22 18:41 Urine Opiates Screen Negative (Negative) 04/01/22 18:41 Ur Tricyclic Antidepressants Screen Negative (Negative) 04/01/22 18:41 Ur Tetrahydrocannabinol (THC) Scrn Positive (Negative) A 04/01/22 18:41 Panel: No Data to Display Anesthesia Assessment and Plan Anesthesia History Personal History: No History of Anesthesia Complications Family History: No Family History of Anesthesia Complications Exercise Tolerance Exercise Tolerance: Metabolic Equivalents>4 Cardiac & Pulmonary Exam Cardiac Exam: Normal S1/S2 Heart Sounds Pulmonary Exam: Clear Bilateral Breath Sounds Implantable Cardiac Device Does patient have a Pacemaker or an ICD?: No Airway Exam Known Difficult Airway: No Mallampati Class: 2 Mouth Opening: Normal (> 3cm) Thyromental Distance: Greater than 3 cm Neck Range of Motion: Full ROM Neck Circumference: Thick Teeth Condition: Normal Dentition ASA Classification ASA Score: ASA 2 Emergency Case?: No NPO Status NPO Status: NPO Clears >2 hours, Solids >8 hours Status Status: Confirmed Anesthesia Plan Resuscitation Status: Full Code Anesthesia Technique: Spinal Anesthesia Airway Planned: Natural Airway Pain Management: Intrathecal Analgesia Monitors Used: Standard Monitors Preoperative Comments:: 37 yo female for repeat c section (this will be #3) Sig PMHx: hypothyroid (has not been tolerating Synthroid, last TSH 2.79), TMJ, never smoker, GERD. No Asthma, HTN. plt 248 04/16. Denies issues with previous anes/sections. did state that she was itchy with them, we discussed that it could be r/t the opioid in the spinal and that we do have ways to treat it.
[2022-04-17] VITALS (14 sets, daily range): BP systolic 96–118; BP diastolic 62–73; PULSE 60–90; RESP 16–20; TEMP 36.4–36.8; TEMPC 36.5; O2SAT 94–97; BMI 41.0
[2022-04-17] MEDS: AZITHROMYCIN 500 MG in Normal Saline 250 ML 250 MG IVPB (07:29)
[2022-04-17] MEDS: Sodium Citrate 30 ML CUP PO (07:43)
[2022-04-17] MEDS: ceFAZolin 2 GM/50 ML BAG IVPB (07:52)
[2022-04-17] MEDS: Lactated Ringers 1,000 ML 200 ML IV (07:52)
--- NOTE | 2022-04-17 08:24 | PLAC_PTH ---
PATIENT: Audra Steward LOC: OBS U#:[id number] AGE/SX: 37/F ROOM: OBS.304 RE04/17/[address]: Joan Gomez DO : 1985 BED: A DIS: 04/19/2022 SPEC #: [id number] RECD: 04/17/22 10:34 STATUS: MARIE REQ #: [id number] GEORGE: 04/17/22 08:[address]: Joan Gomez DEPT: Surgical Specimen RECD BY: Marci Balderrama ENTERED: 04/17/22 10:36 SP TYPE: PLAC OTHR DR: EVE Chung Tissues: 1 - PLACENTA (3RD TRIMESTER) Procedures: GROSS AND MICRO LEVEL 5 Comments: [id number]
--- NOTE | 2022-04-17 09:11 | W.ANESPOSTOP ---
Postoperative Evaluation Date, Time and Location Date Performed: 04/17/22 Time Performed: 09:11 Patient Location: Obstetrics Vital Signs Most Recent Imported Vital Signs: Most Recent Vital Signs Temp Pulse Resp BP Pulse Ox 36.7 C 90 16 112/67 94 04/17/22 06:12 04/17/22 06:17 04/17/22 06:12 04/17/22 06:15 04/17/22 06:17 Most Recent Manually Entered Vital Signs: Adult Blood Pressure: 113/65 Heart Rate: 69 Respirations: 18 Oxygen Saturation (%): 97 Temperature (C): 36.5 C Pain Score (0-10 Scale): 0 Assessment Mental Status: Awake (Alert & Oriented to Patient Baseline) Airway and Respiratory Function: Patent airway with normal (patient baseline) respiratory exam Cardiovascular Function: Hemodynamically Stable Hydration Status: Adequately Hydrated Nausea & Vomiting: No Nausea or Vomiting Pain: Pt. Denies Any Pain Peripheral Nerve Block: Patient did not receive a nerve block Postoperative Comments:: spinal not fully regressed yet. currently with itching likely from IT opioid. She is aware of the narcan orders as is her RN.
--- NOTE | 2022-04-17 09:26 | W.PM.OBCSECT ---
Date of service: 04/17/22 Time of Service: 09:26 Operative Note Operative Note Delivery Method: Scheduled and Repeat Previous LT Incision: Yes DATE OF PROCEDURE: 04/17/22 PRE-OP DIAGNOSES: at 39-2/7. Prior section x2 POST-OP DIAGNOSES: same Adhesions of the omentum to the intra-abdominal wall PROCEDURE: Repeat low-transverse section SURGEON: Joan Gomez Composing Machine Operator/Tender: Princess Dickerson Anesthesia: spinal Estimated blood loss (mL): 400 Pathology: other (Placenta) Complications: None Patient was transported to: floor Patient's condition: stable Indications: Prior section x2, term intrauterine gestation Findings: Normal-appearing tubes, ovaries, uterus. Adhesions of the omentum to the intra-abdominal wall. Delivery of viable male infant Procedure Description: After full informed consent was obtained, patient taken the operating suite with an IV running. She is placed in seated position and spinal anesthesia administered. She was then placed in dorsal supine position with leftward tilt and prepped and draped in the usual sterile fashion. Anesthesia was tested and found to be adequate. She had a vaginal prep and a Osorio catheter inserted along with pneumatic compression stockings placed for DVT prophylaxis. Patient had received 2 g of Ancef and 500 mg of Zithromax prior to skin incision. Pfannenstiel skin incision was made through her previous Pfannenstiel scar carried down to underlying fascia. Fascia was nicked in the midline and extended laterally. The rectus muscles identified and split in the midline and there is noted to be omental adhesions to the anterior abdominal wall. These were meticulously sharply dissected away and the bladder blade was then inserted. The vesicouterine peritoneum identified tented up and sharply and the bladder flap was then created. Bladder blade was reinserted assuring that the bladder was low out of the surgical field. A low transverse uterine incision was made and extended bluntly laterally. There is artificial rupture of membranes for clear fluid. The vertex delivered atraumatically with evidence of nuchal cord that was loose and delivered through. Shoulders followed with ease. Three-vessel cord was noted, clamped x2 and cut and the infant was handed off to the waiting ems educator. At this point cord blood sample and cord blood gases were both obtained and the placenta was manually expressed from the uterus. The uterus then exteriorized and cleared of all clot and debris. Uterine incision was closed using 0-0 Monocryl suture in a running locked fashion followed by an imbricating layer. Uterine incision was noted to be hemostatic and the uterus was returned to the abdomen. Abdomen was irrigated with copious months of normal saline and uterine incision again inspected and found to be hemostatic. Fallopian tubes and ovaries had a normal. At this point the fascial incision was closed using 0 Vicryl suture in a running fashion. Subcutaneous tissue irrigated with copious amounts of normal saline and the subcu space closed with 3-0 Vicryl in a simple interrupted fashion. A subcuticular stitch of 4-0 undyed Monocryl was used to close the incision and Steri-Strips and sterile dressing were placed. Patient was returned to the center in stable condition Osorio catheter draining clear yellow urine. Findings: Delivery of viable male infant from the vertex position with a loose nuchal cord x1 Pathology: Placenta for examination EBL: 400 mL Fluids: Crystalloid per anesthesia Complications: None apparent
[2022-04-17] MEDS: Naloxone 0.4 MG/ML VIAL IVP (09:49)
[2022-04-17] MEDS: Ketorolac 30 MG/ML VIAL IVP ×2 (14:06→20:06)
[2022-04-17] MEDS: Normal Saline Flush 10 ML SYR IVP ×2 (14:07→20:09)
[2022-04-17] MEDS: diphenhydrAMINE 25 MG CAP PO (15:23)
[2022-04-18] MEDS: Ketorolac 30 MG/ML VIAL IVP ×2 (01:50→08:07)
[2022-04-18] MEDS: Normal Saline Flush 10 ML SYR IVP ×2 (01:53→08:08)
[2022-04-18 02:01] VITALS: BP 121/74; PULSE 70; RESP 18
[2022-04-18 07:17] LABS: Abs Immature Grans 0.18 10^3/uL (0.0-0.06); HCT 32.6 % (36.0-46.0); HGB 11.1 g/dL (11.2-15.7); MCH 28.9 pg (27.0-33.0); MCV 85 fL (80-95); MPV 9.6 fL (8.0-11.0); Platelet Count 261 10^3/uL (130-400); RBC 3.84 10^6/uL (3.93-5.22); RDW 13.6 % (11.7-14.6); RDW-SD 42.1 fL; WBC 21.64 10^3/uL (4.4-10.8)
[2022-04-18 07:49] LABS: Absolute Lymphocyte Count 2.16 10^3/uL (1.2-3.4); Absolute Monocyte Count 0.65 10^3/uL (0.1-0.8); Absolute Neutrophil Count 18.83 10^3/uL (1.2-6.7); Atypical Lymphocytes % 1; Bands % 0; Diff Comment Manual Differential; RBC Morphology Normal
--- NOTE | 2022-04-18 07:59 | W.PM.OBPNV1 ---
Date of service: 04/18/22 Time of Service: 08:00 Assessment and Plan Assessment and plan (1) Status post repeat low transverse section: Status: Acute Assessment and plan: Postoperative day #1 status post repeat low transverse section. Overall doing well. Vital signs are stable. Hemoglobin is stable. Will ambulate, pain medication as needed. Anticipate discharge home tomorrow (2) Hypothyroid: Status: Chronic Assessment and plan: Continue Synthroid 50 mcg daily (3) Advanced maternal age (AMA) in : Status: Acute (4) Cough: Status: Acute Assessment and plan: Robitussin for cough which appears to be a viral syndrome. Subjective Subjective Interval history: Patient seen this morning. Overall doing well. Does have a cough consistent with a viral syndrome. She is requesting medication for her cough today. She has no fevers or chills. She is doing well with her . Exam Physical Exam Vital signs: Temp Pulse Resp BP Pulse Ox 98.2 F 70 18 121/74 97 04/17/22 19:57 04/18/22 02:01 04/18/22 02:01 04/18/22 02:01 04/17/22 15:50 Vital Signs Reviewed: Yes Constitutional Constitutional: no acute distress, obese and cooperative HEENT Exam HEENT Exam: Normal Detailed HEENT Exam Head: Present normocephalic Neck Exam Neck Exam: Normal Respiratory Exam Respiratory Exam: Normal Detailed Respiratory Exam Comments: Mild cough Cardiovascular Exam Cardiovascular Exam: Normal Abdominal Exam Comments: Soft, incision dressed. Fundal Exam Fundus: Below Umbilicus and Firm Extremities Exam Extremity Exam: Normal Psychiatric Exam Psychiatric Exam: Normal Results Hemoglobin/Hematocrit: Hgb 11.1 g/dL (11.2-15.7) L 04/18/22 07:05 Hct 32.6 % (36.0-46.0) L 04/18/22 07:05 Abnormal Lab Findings: Abnormal Labs 04/18/22 07:05 WBC 21.64 H RBC 3.84 L Hgb 11.1 L Hct 32.6 L Absolute Neutrophils 18.83 H
[2022-04-18] MEDS: Docusate Sodium 100 MG CAP PO ×2 (08:08→23:34)
[2022-04-18 08:21] VITALS: BP 115/71; PULSE 55; RESP 16; TEMP 36.4; O2SAT 97
[2022-04-18] MEDS: guaiFENesin/D-METHORPHAN HB 5 ML CUP 10 ML PO ×2 (08:48→17:31)
[2022-04-18] MEDS: Levothyroxine 50 MCG TAB PO (08:49)
[2022-04-18] MEDS: Omeprazole 20 MG CAPCR PO (08:49)
[2022-04-18 12:49] VITALS: BP 113/72; PULSE 67; RESP 16; TEMP 36.4; O2SAT 97
[2022-04-18 17:22] VITALS: BP 108/74; PULSE 70; RESP 16; TEMP 36.6; O2SAT 96
[2022-04-18] MEDS: Ibuprofen 600 MG TAB PO ×2 (17:31→23:34)
[2022-04-18 19:28] VITALS: BP 111/67; PULSE 70; RESP 16; TEMP 36.6; O2SAT 96
[2022-04-18 23:21] VITALS: BP 124/83; RESP 18; TEMP 36.6; O2SAT 97
[2022-04-18] MEDS: Albuterol HFA 8 GM 60 PUFF INH IH (23:41)
[2022-04-19 04:49] VITALS: BP 120/62; PULSE 75; RESP 16; TEMP 36.6; O2SAT 96
--- NOTE | 2022-04-19 08:05 | W.PM.OBPNV1 ---
Date of service: 04/19/22 Time of Service: 08:10 Assessment and Plan Assessment and plan (1) Status post repeat low transverse section: Status: Acute Assessment and plan: Postoperative day #2 status post repeat low transverse section for prior section x2. Anticipate discharge home today. Follow-up in the office in 2 and 6 weeks. Prescription sent to the pharmacy. Exam Physical Exam Vital signs: Temp Pulse Resp BP Pulse Ox 97.9 F 75 16 120/62 96 04/19/22 04:49 04/19/22 04:49 04/19/22 04:49 04/19/22 04:49 04/19/22 04:49 Vital Signs Reviewed: Yes Constitutional Constitutional: no acute distress and obese HEENT Exam HEENT Exam: Normal Neck Exam Neck Exam: Normal Detailed Respiratory Exam Respiratory: Present wheezes Cardiovascular Exam Cardiovascular Exam: Normal Abdominal Exam Abdomen: Tender Fundal Exam Fundus: Below Umbilicus and Firm Neurological Exam Neurological Exam: Normal Psychiatric Exam Psychiatric Exam: Normal Results Hemoglobin/Hematocrit: Hgb 11.1 g/dL (11.2-15.7) L 04/18/22 07:05 Hct 32.6 % (36.0-46.0) L 04/18/22 07:05 Abnormal Lab Findings: Abnormal Labs 04/18/22 07:05 WBC 21.64 H RBC 3.84 L Hgb 11.1 L Hct 32.6 L Absolute Neutrophils 18.83 H
[2022-04-19] MEDS: Levothyroxine 50 MCG TAB PO (08:08)
--- NOTE | 2022-04-19 08:16 | DSE_ITS ---
Date of service: 04/19/22 Time of Service: 08:16 DS: Diagnosis Discharge Diagnosis (1) Status post repeat low transverse section: Status: Acute Asessment and Plan: Postoperative day #2 status post repeat low transverse section. Doing well. Discharge home today. Discharge Plan Disposition Condition: Good Discharge Details Reason For Visit: Delivery Admit Date/Time: 04/17/22 05:51 Admit Provider: Joan Gomez Attending Provider: Joan Gomez Primary Care Provider: Kayley Waters Hospital Course Hospital Course: Patient underwent a repeat low-transverse section at 39 weeks and 2 days. She had an uncomplicated postoperative course and was discharged home postoperative day #2 ambulating, tolerating regular diet and oral pain medication on her home medications. She also had a prescription for ibuprofen, and Percocet along with Colace sent to the pharmacy. Home Meds and New Rx's Prescriptions: New ibuprofen 800 mg tablet 800 mg PO Q8H PRNQty: 60 1RF oxycodone-acetaminophen [Percocet] 5-325 mg tablet 1 tab PO Q8H PRNQty: 10 0RF docusate sodium [Colace] 100 mg capsule 100 mg PO BID Qty: 30 0RF Continued docusate sodium [Colace] 100 mg capsule 100 mg PO BID PRN levothyroxine 50 mcg tablet 50 mcg PO DAILY Qty: 90 1RF ondansetron 4 mg tablet,disintegrating 4 mg PO TID PRN (Reason: nausea and vomiting) Qty: 90 2RF omeprazole 40 mg capsule,delayed release(DR/EC) 40 mg PO DAILY Qty: 60 0RF Discharge Instructions Stand Alone Forms: BC Instructions, BC Discharge Instruc Activity:: Pelvic rest and no liftin Equipment/Supplies:: No Equipment Needed Diet:: As Tolerated OB:DS Summary Contraception Discussed Contraception Discussed: Yes Contraceptive Plan: Undecided, [place] Gender-Baby A: Male weight: 7 lb 0.171 oz Status at Discharge Functional status at discharge: independent ambulation Overall status at discharge: patient is progressing back to baseline Mental Status: mental status grossly normal Speech and Movement: speech and movement normal Mood: congruent mood Affect: normal affect Exam Physical Exam Vital signs: Temp Pulse Resp BP Pulse Ox 97.9 F 75 16 120/62 96 04/19/22 04:49 04/19/22 04:49 04/19/22 04:49 04/19/22 04:49 04/19/22 04:49 Narrative: See physical exam from progress note dated 04/19/2022 [facility] All Active Problems Cough (Acute) Status post repeat low transverse section (Acute) Hypothyroid (Chronic) Advanced maternal age (AMA) in (Acute) BMI 35.0-35.9,adult (Acute) (Acute) TMJ (temporomandibular joint disorder) (Chronic) Atopic dermatitis (Chronic) Allergic rhinitis due to pollen (Chronic) Dr. Mccall - Allergy Injections Medical History COVID-19 virus infection (~02/2021) History of abnormal cervical Pap smear 2019 with colp - needs repeat pap. Surgical History History of section (10/25/04) and 06/29/08 Previous section X 2 S/P LEEP of cervix (03/10/17) Family History Mother Lung cancer Father Prostate cancer Paternal Grandfather Cancer Paternal Grandmother Cancer Blood cancer Social History Smoking/Tobacco Use Status: Never Smoking risk assessment performed?: Yes Alcohol Intake: current Alcohol Intake frequency: holidays/special occasions only Drug use: Never Substance use type: does not use Counseling given: No Household members: children and other Details: daughters Eve and Yumiko Number of Children: 2 Seatbelt use: always Do you feel safe at home: Yes Do you feel safe in your relationship?: Yes Female Reproductive History Menstrual Duration of menses: 3-5 days control method: none History History 3 Para 2 Hx # Term Pregnancies 2 Multiple births Hx # Pregnancies Ectopic pregnancies AB induced Hx Number of Living Children 2 AB spontaneous Past Pregnancies Del. Date GA/Weeks # Preg Succ Route Wgt Sex Labor Lgth Anesth esia Location [facility] 10/25/04 37 No 6 lb [address] Cartwright 03/11/09 39 No 6 lb [address] Karen Zarco Delivery Date: 10/25/04 Last Updated by: Gisselle Robbins CNM pre-eclampsia IOL, after 24 hours of labor Delivery Date: 06/29/08 Last Updated by: Gisselle Robbins CNM scheduled DS: Data Vitals/I&O Vitals and I&O: Vital Signs Temperature 97.9 F 04/19/22 04:49 Pulse 75 04/19/22 04:49 Pulse Rhythm Regular 04/18/22 19:28 Respiratory Rate 16 04/19/22 04:49 Blood Pressure 120/62 04/19/22 04:49 Blood Pressure Mean 81 04/19/22 04:49 Pulse Oximetry 96 04/19/22 04:49 Oxygen Delivery Method Room Air 04/17/22 06:12 Oxygen Flow Rate 0 04/17/22 06:12 Pain Level 5 04/18/22 23:34 Intake & Output 04/18/22 04/18/22 04/19/22 11:59 23:59 11:59 Intake Total 1500 / 1500 Output Total 3300 / 3300 Balance -1800 / -1800 Intake: Oral 1500 / 1500 Output: Urine 3300 / 3300
[2022-04-19 08:59] VITALS: BP 127/82; PULSE 75; RESP 18; TEMP 36.6; O2SAT 97
[2022-04-19] MEDS: guaiFENesin/D-METHORPHAN HB 5 ML CUP 10 ML PO (08:59)
== END 2022-04-19 14:15 | disposition home or self-care (01) | DRG 787 ==
PROVIDERS: Admitting Provider Obstetrics & Gynecology; PCP Nurse Practitioner Family; Visit Provider Obstetrics & Gynecology
PROC: 10D00Z1 Extraction of Products of Conception, Low, Open Approach (ICD-10-PCS; CPT 59514; principal; 2022-04-17 07:30)
DX: O34.211 Maternal care for low transverse scar from previous cesarean delivery (principal); O98.52 Other viral diseases complicating childbirth; N85.8 Other specified noninflammatory disorders of uterus; O99.284 Endocrine, nutritional and metabolic diseases complicating childbirth; E03.9 Hypothyroidism, unspecified; Z3A.40 40 weeks gestation of pregnancy; Z37.0 Single live birth; R05.1 Acute cough; B33.8 Other specified viral diseases
CPT/HCPCS: 59514; 36415; 82803; 88305; 85025; 88307; J0131; J0456; J0690; J1100; J1885; J2310; J2370; J2405; J3010

== ENCOUNTER 2022-07-23 11:24 | Emergency (ER) | payer OTHER, MEDICAID, SELFPAY ==
[2022-07-23 11:29] VITALS: BP 144/85; PULSE 74; RESP 18; TEMP 36.3; O2SAT 98
--- NOTE | 2022-07-23 11:30 | DI.RAD_ITS ---
Exam(s) XR WRIST RT COMPLETE EXAM: XR WRIST RT COMPLETE CLINICAL HISTORY: injured. TECHNIQUE: 2D digital imaging was performed. Three views. COMPARISON: CR XR WRIST LT COMPLETE from 05/26/2019 CR XR HAND RT COMPLETE from 07/23/2022 FINDINGS: BONES: No acute fracture is present. No bony destructive lesion is seen. JOINTS: The carpal bones are normally aligned. SOFT TISSUE: Normal. IMPRESSION: Unremarkable radiographs of the right wrist. DATA REPOSITORY: RADIATION DOSE DELIVERED:
--- NOTE | 2022-07-23 11:30 | DI.RAD_ITS ---
Exam(s) XR HAND RT COMPLETE EXAM: XR HAND RT COMPLETE CLINICAL HISTORY: injured. TECHNIQUE: 2D digital imaging was performed. Three views. COMPARISON: No exams were available for comparison FINDINGS: BONES: No acute fracture is present. No bony destructive lesion is seen. JOINTS: No dislocation present. SOFT TISSUE: Normal. IMPRESSION: Unremarkable radiographs of the right hand. DATA REPOSITORY: RADIATION DOSE DELIVERED:
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
== END 2022-07-23 12:59 | disposition home or self-care (01) ==
PROVIDERS: Emergency Provider Emergency Medicine; PCP Nurse Practitioner Family
DX: S60.211A Contusion of right wrist, initial encounter (principal); E03.9 Hypothyroidism, unspecified; Z86.16 Personal history of COVID-19; Y99.0 Civilian activity done for income or pay; W50.1XXA Accidental kick by another person, initial encounter
CPT/HCPCS: 96372; 99284; 73110; 73130

== ENCOUNTER 2024-07-12 12:41 | Emergency (ER) | payer MEDICAID, SELFPAY ==
[2024-07-12 12:45] VITALS: BP 125/68; PULSE 72; RESP 20; TEMP 36.4; O2SAT 98
--- NOTE | 2024-07-12 13:05 | W.ED.GENAD ---
Discharge Plan Disposition Patient Disposition: Home Condition: Stable Discharge Details Clinical Impression: Sacroiliac joint pain, Radiculopathy Primary Care Provider: Kayley Waters ED Provider: Heike Field Home Meds and New Rx's Prescriptions: New lidocaine 5 % adhesive patch,medicated 1 patch topical DAILY Qty: 30 0RF Rx Instructions: leave on most painful area for up to 12 hrs prednisone 20 mg tablet 40 mg PO DAILY 5 Days Qty: 10 0RF No Action norgestimate-ethinyl estradiol [Sprintec (28)] 0.25-35 mg-mcg tablet 1 tab PO DAILY Qty: 84 3RF levothyroxine 50 mcg tablet 50 mcg PO DAILY Qty: 90 1RF ibuprofen 800 mg tablet 800 mg PO Q8H PRNQty: 60 1RF Discharge Instructions Instructions: Radiculopathy (DC) Additional Instructions: You were seen in the emergency department today for evaluation of low back pain that is most concerning for sacroiliac joint pain, as well as numbness in your right arm during sleep that is likely due to a nerve compression. In our department you had a full physical examination performed that was reassuring, and received medications for management of your symptoms. I recommend ongoing multimodal pain management including Tylenol, ibuprofen, lidocaine patches, and have prescribed you a short course of steroids to reduce inflammation that may be contributing to your symptoms. We have placed a referral with our neurologist for further workup and management of your potential nerve compression. Additionally, some patients find relief with wrapping towels around your elbows to prevent severe flexing of the arm during sleep which can exacerbate nerve compression symptoms. Please follow-up with your primary care provider in the next few days to discuss this visit and any symptoms that change, worsen, or persist. Thank you for allowing us to be part of your care. Discharge Data Discharge Date/Time-TO BE ENTERED AT DEPARTURE: 07/12/24 13:30 HPI General Mode of arrival: ambulatory. Date/Time Provider Initiated Documentation: 07/12/24 12:51. Limitations to Documentation: no limitations. Information obtained by: patient and old records reviewed. HPI Narrative: HPI: This is a 39-year-old female patient with a past medical history significant for sciatica who is presenting for evaluation of right arm numbness and back pain. The patient reports that for the last several weeks she has been experiencing numbness and tingling in her right hand after sleep. She reports that she sleeps with her arms flexed at the elbow, and wakes up and has tingling of all 5 fingers radiating up her forearm. This takes several hours to resolve after awakening, and she is concerned for pinched nerve. She reports that during these events she feels significant pain shooting up her forearm when she tries to lift or grasp something, denies weakness. 2 days ago she states that she started to develop right sided lower back pain, which does not radiate, and suspects that this is because she has changed her sleeping position to on her back and sit up on her sides. The patient has tried Tylenol in the outpatient environment for management of pain without significant improvement. She reports no recent falls, trauma, or other injury or overuse event. She has not had fever, has never had instrumentation of her back, and denies saddle anesthesia, leg numbness or weakness, bowel or bladder incontinence. Exam: Gen: Awake and alert, in no apparent distress HEENT: Non-icteric sclera Neck: Supple, no midline or paraspinal muscle tenderness, full range of motion of the neck. Lungs: No apparent respiratory distress, normal respiratory effort. CV: Appears well perfused, strong and symmetrical distal pulses Abdomen: Non-distended MSK: Moves 4 extremities without apparent limitation in ROM. The patient has no tenderness to palpation over the trapezius muscle of the right shoulder, upper right extremities without external abnormalities. Currently no numbness or tingling, full strength and sensation of the right upper extremity compared to the contralateral side. No tenderness to palpation over the cubital fossa. The patient has no midline T or L-spine tenderness, but does have tenderness to palpation over the right lower back in the area of the SI joints, no overlying skin changes, no radicular pain or radiation of pain into the buttock or legs. Skin: Visualized skin without rashes, cyanosis. Neuro: Normal Gait, 5 out of 5 strength x 4 extremities, no sensory deficits. Psych: Appropriate for situation. MDM: This is a 39-year-old female patient presenting for evaluation of right arm numbness after sleep and 2 days of lower back pain. My differential includes but is not limited to nerve compression, cervical radiculopathy, cubital tunnel synrome. I see no evidence for vascular abnormality in this patient with adequate perfusion and no pulse differential. No injuries to suggest trauma, no palpable muscular spasms and no evidence of pain or abnormality at the level of the neck. Regarding her lower back pain, the patient's symptoms are most concerning for SI joint pain, lumbar radiculopathy was considered that the patient has no radicular symptoms, I think sciatica is less likely, and she has no red flag symptoms to suggest cauda equina, spinal epidural abscess or hematoma, or other emergent spinal cord compressive symptoms. No overlying skin changes to suggest herpes zoster. ED Course: Given the lack of trauma, I feel that ED imaging would be of limited utility in this patient. I do recommend that she trial multimodal pain management, and I provided her with a dose of Tylenol, Toradol, and lidocaine here in the emergency department. Provided her with a short course of prednisone for presumed nerve compression. She was referred to neurology for ongoing evaluation specifically of the right upper extremity numbness. I counseled the patient on padding around her elbow so that they could not forcefully flex during sleep. At this time, the patient has had a full medical evaluation and is safe for discharge to home. They are hemodynamically stable, ambulatory, and tolerating PO. They are understanding of the follow-up plan and return precautions. They left our facility without incident. Heike Field MD Related Data Home Medications ?Medication ?Instructions ?Recorded ?Confirmed levothyroxine 50 mcg tablet 50 mcg PO DAILY #90 tabs 08/21/21 07/12/24 ibuprofen 800 mg tablet 800 mg PO Q8H PRN #60 tabs 04/19/22 07/12/24 norgestimate 0.25 mg-ethinyl 1 tab PO DAILY #84 tabs 05/02/22 07/12/24 estradiol 35 mcg tablet (Sprintec (28)) lidocaine 5 % topical patch 1 patch topical DAILY #30 ea 07/12/24 prednisone 20 mg tablet 40 mg (2 x 20 mg) PO DAILY 5 days 07/12/24 #10 tabs Previous Rx's ?Medication ?Instructions ?Recorded levothyroxine 50 mcg tablet 50 mcg PO DAILY #90 tabs 08/21/21 ibuprofen 800 mg tablet 800 mg PO Q8H PRN #60 tabs 04/19/22 norgestimate 0.25 mg-ethinyl 1 tab PO DAILY #84 tabs 05/02/22 estradiol 35 mcg tablet (Sprintec (28)) lidocaine 5 % topical patch 1 patch topical DAILY #30 ea 07/12/24 prednisone 20 mg tablet 40 mg (2 x 20 mg) PO DAILY 5 days 07/12/24 #10 tabs Allergies Allergy/AdvReac Type Severity Reaction Status Date / Time Penicillins AdvReac Unknown Nausea Verified 07/12/24 12:48 General Stated Complaint: Nk/Back Pain CASSIDY: 4 Course Vital Signs Vital signs: Vital Signs Temperature 36.4 C L 07/12/24 12:45 Pulse 72 07/12/24 12:45 Respiratory Rate 20 07/12/24 12:45 Blood Pressure 125/68 07/12/24 12:45 Pulse Oximetry 98 07/12/24 12:45 Temperature 36.4 C L 07/12/24 12:45 Pulse 72 07/12/24 12:45 Respiratory Rate 20 07/12/24 12:45 Blood Pressure 125/68 07/12/24 12:45 Blood Pressure Position Sitting 07/12/24 12:45 Pulse Oximetry 98 07/12/24 12:45 Oxygen Delivery Method Room Air 07/12/24 12:45 Oxygen Flow Rate 0 07/12/24 12:45 Medical Decision Making Quality:SDOH Health Related Social Needs: No Data to Display PFSH All Active Problems (Updated 07/12/24 @ 13:06 by Heike Field MD) Radiculopathy (Acute) Sacroiliac joint pain (Acute) Cough (Acute) BMI 35.0-35.9,adult (Acute) TMJ (temporomandibular joint disorder) (Chronic) Atopic dermatitis (Chronic) Allergic rhinitis due to pollen (Chronic) Dr. Mccall - Allergy Injections Medical History (Updated 07/12/24 @ 13:06 by Heike Field MD) Hypothyroid History of abnormal cervical Pap smear 2018 with colp - needs repeat pap. COVID-19 virus infection (~02/2021) Surgical History (Updated 05/28/22 @ 14:35 by Joan Gomez DO) Status post repeat low transverse section Previous section X 2 S/P LEEP of cervix (03/10/17) History of section (10/25/04) and 06/29/08 Family History Mother Lung cancer Father Prostate cancer Paternal Grandfather Cancer Paternal Grandmother Cancer Blood cancer Social History Smoking/Tobacco Use Status: Never Smoking risk assessment performed?: Yes Alcohol Intake: current Alcohol Intake frequency: holidays/special occasions only Drug use: Never Substance use type: does not use Counseling given: No Household members: children and other Details: daughters Eve and Yumiko Number of Children: 2 Seatbelt use: always Do you feel safe at home: Yes Do you feel safe in your relationship?: Yes Female Reproductive History Menstrual Duration of menses: 3-5 days control method: none History History 3 Para 3 Hx # Term Pregnancies 3 Multiple births Hx # Pregnancies Ectopic pregnancies AB induced Hx Number of Living Children 3 AB spontaneous Past Pregnancies Del. Date GA/Weeks # Preg Succ Route Wgt Sex Labor Lgth Anesthesia Location [facility] 10/25/04 37 [address] [place] 06/29/08 39 [address] [place] 04/17/22 39 No Yes 3179.994 g Male KJ Delivery Date: 10/25/04 Last Updated by: Gisselle Robbins CNM pre-eclampsia IOL, after 24 hours of labor Delivery Date: 06/29/08 Last Updated by: Gisselle Robbins CNM scheduled
[2024-07-12] MEDS: Lidocaine 5% Patch 1 PATCH TP (13:13)
[2024-07-12] MEDS: Acetaminophen 500 MG TAB 1000 MG PO (13:13)
[2024-07-12] MEDS: Ketorolac 15 MG/ML VIAL IM (13:14)
[2024-07-12 13:29] VITALS: BP 122/104; PULSE 78; RESP 18; O2SAT 96
== END 2024-07-12 13:30 | disposition home or self-care (01) ==
LOC: ER 13:31
PROVIDERS: Emergency Provider Emergency Medicine; PCP Nurse Practitioner Family
DX: M54.18 Radiculopathy, sacral and sacrococcygeal region (principal); R20.0 Anesthesia of skin; E03.9 Hypothyroidism, unspecified
CPT/HCPCS: 96372; 99284; 99283; J1885